=== PATIENT | female | born 1970 | race African-American/Black ===

== ENCOUNTER 2018-09-24 08:23 | Inpatient (IN) | payer OTHER ==
[2018-09-24 09:08] VITALS: BMI 20.2
--- NOTE | 2018-09-24 10:00 | HP ---
COWS - Scale Resting Pulse: 0= [place] 80 or Below Sweatin=Flushed/Facial Moisture Restless Observation: 3= Extraneous Movement Pupil Size: 1= Pupils >than Normal Bone or Joint Aches: 4=Acute Joint/Muscle Pain Runny Nose/ Eye Tearin= Runny Nose/Eyes GI Upset > 30mins: 1= Stomach Cramp Tremor Observation: 4= Gross Tremor/Twitching Yawning Observation: 1= 1-2x During Session Anxiety or Irritability: 2=Irritable/Anxious Goose Flesh Skin: 0=Smooth Skin COWS Score: 20 CIWA Score Nausea/Vomitin-Mild Nausea/No Vomiting Muscle Tremors: 3 Anxiety: 4-Mod. Anxious/Guarded Agitation: 4-Moderately Restless Paroxysmal Sweats: 2 Orientation: 2-Disoriented Date<2 days Tacttile Disturbances: 0-None Auditory Disturbances: 0-None Visual Disturbances: 0-None Headache: 3-Moderate CIWA-Ar Total Score: 19 - Admission Criteria [facility]ASAS Guidelines: Admission for Medically Managed Detox: Requires at least one of the followin. CIWA greater than 12 2. Seizures within the past 24 hours 3. Delirium tremens within the past 24 hours 4. Hallucinations within the past 24 hours 5. Acute intervention needed for co occurring medical disorder 6. Acute intervention needed for co occurring psychiatric disorder 7. Severe withdrawal that cannot be handled at a lower level of care (continued vomiting, continued diarrhea, abnormal vital signs) requiring intravenous medication and/or fluids 8. Admission ROS [facility] Chief Complaint: Heroin and alcohol withdrawal symptoms Allergies/Adverse Reactions: Allergies Allergy/AdvReac Type Severity Reaction Status Date / Time No Known Allergies Allergy Verified 09/24/18 08:58 History of Present Illness: 48 years old female with six years of heroin dependence and a long history of alcohol dependence is seeking admission to detox. Patient reports that she has been in detox 3 times, last at [facility] about 18 months ago. Patient reports that she is homeless. She reports that she has medical history of hypertension, migraine headaches, anemia and anxiety. She reports heroin overdose in 2018 and intermittent blackouts, last in May 2018. She requested for HIV and Hep. C tests. She reports suicide attempt in 2017 and denies suicidal ideation at this time. Exam Limitations: Clinical Condition - Ebola screening Have you traveled outside of the country in the last 21 days: No (N) Have you had contact with anyone from an Ebola affected area: No Do you have a fever: No - Review of Systems Constitutional: Chills, Malaise, Changes in sleep, Weakness EENT: reports: Sinus Pressure Respiratory: reports: No Symptoms reported Cardiac: reports: No Symptoms Reported GI: reports: Poor Appetite, Poor Fluid Intake, Abdominal cramping : reports: No Symptoms Reported Musculoskeletal: reports: Back Pain, Joint Pain, Muscle Pain Integumentary: reports: Dryness, Flushing Neuro: reports: Headache, Tremors Endocrine: reports: No Symptoms Reported Hematology: reports: No Symptoms Reported Psychiatric: reports: Anxious Other Systems: Reviewed and Negative Patient History - Patient Medical History Hx Anemia: Yes (Not on medication) Hx Asthma: No Hx Chronic Obstructive Pulmonary Disease (COPD): No Hx Cancer: No Hx Cardiac Disorders: No Hx Congestive Heart Failure: No Hx Hypertension: Yes (Not on medication) Hx Hypercholesterolemia: No Hx Pacemaker: No HX Cerebrovascular Accident: No Hx Seizures: No Hx Dementia: No Hx Diabetes: No Hx Gastrointestinal Disorders: No Hx Liver Disease: No Hx Genitourinary Disorders: No Hx Sexually Transmitted Disorders: Yes (Chlamydia) Hx Renal Disease (ESRD): No Hx Thyroid Disease: No Hx Human Immunodeficiency Virus (HIV): No (Negative 2017) Hx Hepatitis C: No Hx Suicide Attempt: Yes (Attempt in 2017. Denies suicidal ideation at this time) Hx Bipolar Disorder: No Hx Schizophrenia: No Other Medical History: Anxiety, mood swing - Not on medication - Patient Surgical History Past Surgical History: No - PPD History Previous Implant?: Yes Documented Results: Negative w/o proof Implanted On Prior [facility] Admission?: No PPD to be Administered?: Yes - Reproductive History Patient is a Female of Child Bearing Age (11 -55 yrs old): Yes Last Menstrual Period: 09/21/18 Patient : No - Smoking Cessation Smoking history: Current every day smoker Have you smoked in the past 12 months: Yes Aproximately how many cigarettes per day: 6 Hx Chewing Tobacco Use: No Initiated information on smoking cessation: Yes 'Breaking Loose' booklet given: 09/24/18 - Substance & Tx. History Hx Alcohol Use: Yes Hx Substance Use: Yes Substance Use Type: Alcohol, Cocaine, Heroin, Marijuana Hx Substance Use Treatment: Yes ([facility]) - Substances abused Alcohol Substance route: Oral Frequency: Daily Amount used: vodka- 1.5pts /beer-4 24oz cans Age of first use: 18 Date of last use: 09/24/18 Heroin Substance route: Inhalation Frequency: Daily Amount used: 3bags Age of first use: 42 Date of last use: 09/22/18 Crack Substance route: Smoking Frequency: Daily Amount used: $200 Age of first use: 18 Date of last use: 09/24/18 Non-Rx Methadone Substance route: Oral Frequency: 1-2 times per week Amount used: $20 Age of first use: 47 Date of last use: 09/24/18 Family Disease History - Family Disease History Family Disease History: Heart Disease: Father (Alcoholic cirrhosis - ), Mother (asthma), Respiratory: Mother, Other: Father Admission Physical Exam [facility] - Vital Signs Vital Signs: Vital Signs - 24 hr 09/24/18 08:58 Temperature 97.2 F L Pulse Rate 68 Respiratory 18 Rate Blood Pressure 165/102 H - Physical General Appearance: Yes: Moderate Distress, Tremorous, Irritable, Anxious HEENTM: Yes: Nasal Congestion Respiratory: Yes: Lungs Clear, Normal Breath Sounds, No Respiratory Distress Neck: Yes: Supple Breast: Yes: Breast Exam Deferred Cardiology: Yes: Regular Rhythm, Regular Rate Abdominal: Yes: Normal Bowel Sounds, Soft Genitourinary: Yes: Within Normal Limits Back: Yes: Normal Inspection Extremities: Yes: Normal Inspection Neurological: Yes: Within Normal Limits Integumentary: Yes: Warm Lymphatic: Yes: Within Normal Limits - Diagnostic (1) Cannabis dependence with withdrawal Current Visit: Yes Status: Acute (2) Opioid dependence with withdrawal Current Visit: Yes Status: Acute (3) Cocaine dependence with withdrawal Current Visit: Yes Status: Acute (4) HTN (hypertension) Current Visit: Yes Status: Chronic Qualifiers: Hypertension type: essential hypertension Qualified Code(s): I10 - Essential (primary) hypertension (5) Anemia Current Visit: Yes Status: Acute Qualifiers: Anemia type: iron deficiency (6) Migraine Current Visit: Yes Status: Chronic (7) Anxiety Current Visit: Yes Status: Acute (8) Nicotine dependence Current Visit: Yes Status: Chronic Qualifiers: Nicotine product type: cigarettes Substance use status: uncomplicated Qualified Code(s): F17.210 - Nicotine dependence, cigarettes, uncomplicated Cleared for Admission [facility] - Detox or Rehab [facility] Level of Care: Medically Managed Detox Regimen/Protocol: Methadone/Librium Breathalyzer - Breathalyzer Breathalyzer: 0 Urine Drug Screen - Test Device Lot number: [id number] Expiration date: 05/25/20 - Control Is test valid?: Yes - Results Drug screen NEGATIVE: No Urine drug screen results: THC-Marijuana, STU-Cocaine, MTD-Methadone Inpatient Rehab Admission - Rehab Decision to Admit Inpatient rehab admission?: No
[2018-09-24] MEDS ORDERED: chlordiazePOXIDE HCL 25 MG CAPSULE PO PRN (10:24)
[2018-09-24] MEDS ORDERED: BISMUTH SUBSALICYLATE 524 MG/30 ML UD PO PRN (10:24)
[2018-09-24] MEDS ORDERED: cloNIDine HCL 0.1 MG TABLET PO PRN (10:24)
[2018-09-24] MEDS ORDERED: MAG HYDROX/AL HYDROX/SIMETH 30 ML UNIT-DOSE CUP PO PRN (10:24)
[2018-09-24] MEDS ORDERED: MAGNESIUM CITRATE 300 ML BOTTLE PO PRN (10:24)
[2018-09-24] MEDS ORDERED: NICOTINE POLACRILEX 2 MG GUM BUC PRN (10:24)
[2018-09-24] MEDS ORDERED: ACETAMINOPHEN 325 MG TABLET (FP) PO PRN ×2 (10:24)
[2018-09-24] MEDS ORDERED: MELATONIN 5 MG TABLETS PO PRN (10:24)
[2018-09-24] MEDS ORDERED: MAGNESIUM HYDROX 2400MG/30ML ORAL SUSPENSION 30 ML CUP PO PRN (10:24)
[2018-09-24] MEDS ORDERED: MENTHOL/PHENOL 1 EACH UD MM PRN (10:24)
[2018-09-24] MEDS ORDERED: IBUPROFEN 400 MG TABLET (FP) PO PRN (10:24)
[2018-09-24] MEDS ORDERED: hydrOXYzine PAMOATE 25 MG CAPSULE (FP) PO PRN (10:24)
[2018-09-24] MEDS ORDERED: METHADONE HCL 10 MG TABLET (FOR DETOX USE ONLY) PO ONE (11:00)
[2018-09-24] MEDS: METHOCARBAMOL 500 MG TABLET PO PRN (12:22)
[2018-09-24] MEDS: chlordiazePOXIDE HCL 25 MG CAPSULE PO SCH ×3 (12:29→22:20)
[2018-09-24] MEDS ORDERED: METHADONE HCL 10 MG TABLET PO ONE (12:34)
--- NOTE | 2018-09-24 16:24 | PN ---
S Progress Note Note: ADMISSION EKG REVIEW: NSR NONSPECIFIC TWAVE ABNORMALITY, CONSIDER ISCHEMIA ABNORMAL ECG PT HAS NO PREVIOUS EKG PT DENIES CHEST PAIN, DIZZINESS,SWEATS, HEADACHE,NV/D. PLAN:REPEAT EKG IN A.M DUE TO NO BASELINE ECG. D/W PT TO INFORM STAFF OF ANY DISCOMFORT SO EVENING HOUSE PROVIDER CAN FOLLOW UP WITH FURTHER EVALUATION. ADDENDUM:PT HAS RX POSTED ON PHARMACY ONLINE FOR ISENTRESS AND TRUVADA. PT STATES SHE IS HX HIV NEGATIVE SO FAR AND WAS FOR UNPROTECTED SEX SHE ENGAGED IN BACK IN JUNE. PT HAS REQUESTED ON ADMISSION TODAY FOR HIV SCREENING. PT ALSO HAS RX POSTED FOR LITHIUM 150 MG PO #60 X 30 DAYS ON 08/02/18 ESCITALOPRAM TAB 10 MG PO #30 X 30 DAYS ON 08/02/18
[2018-09-24] MEDS ORDERED: COLLOIDAL OATMEAL 1 BAR EACH TP PRN (16:28)
[2018-09-24] MEDS: THIAMINE HCL 100 MG TABLET (FP) PO SCH (22:19)
[2018-09-24] MEDS: HYDROCORTISONE 1% TOPICAL CREAM 30 GM TUBE TP SCH (22:20)
--- NOTE | 2018-09-25 00:08 | EKG ---
Test Reason : Blood Pressure : / mmHG Vent. Rate : 066 BPM Atrial Rate : 066 BPM P-R Int : 152 ms QRS Dur : 084 ms QT Int : 424 ms P-R-T Axes : 077 069 078 degrees QTc Int : 444 ms NORMAL SINUS RHYTHM T WAVE ABNORMALITY, CONSIDER ANTERIOR ISCHEMIA ABNORMAL ECG NO PREVIOUS ECGS AVAILABLE Confirmed by MD Navdeep, Nasir ([id number]) on 09/25/2018 12:07:18 AM Referred By: HERNÁN BEATTY, Confirmed By:Nasir Sethi MD
[2018-09-25] MEDS: chlordiazePOXIDE HCL 25 MG CAPSULE PO SCH ×5 (05:19→22:49)
[2018-09-25] MEDS ORDERED: METHADONE HCL 10 MG TABLET (FOR DETOX USE ONLY) PO ONE (10:00)
[2018-09-25] MEDS: PRENATAL VITAMINS W/ FOLIC ACID TABLET (FP) PO SCH (10:21)
[2018-09-25] MEDS: HYDROCORTISONE 1% TOPICAL CREAM 30 GM TUBE TP SCH ×2 (10:21→22:49)
[2018-09-25] MEDS: NICOTINE 14 MG/24 HOURS TOPICAL PATCH TD SCH (10:23)
[2018-09-25 10:25] LABS: HEMATOCRIT 37.3 % (32.4-45.2); MCH 30.1 pg (25.7-33.7); MCHC 32.3 g/dl (32.0-36.0); MEAN CELL VOLUME 93.3 fl (80-96); MEAN PLT VOLUME 8.9 fl (7.5-11.1); PLATELET COUNT 296 K/MM3 (134-434); RDW 14.4 % (11.6-15.6); WHITE BLOOD COUNT 6.8 K/mm3 (4.0-10.0)
[2018-09-25 10:56] LABS: ALBUMIN 2.7 g/dl (3.4-5.0); BILIRUBIN,TOTAL 0.2 mg/dL (0.2-1); BLOOD UREA NITROGEN 15.4 mg/dL (7-18); CALCIUM 8.8 mg/dL (8.5-10.1); CREATININE 0.7 mg/dL (0.55-1.3); TOT PROT 5.8 g/dl (6.4-8.2)
[2018-09-25] MEDS ORDERED: PNEUMOC 13-VAL CONJ-DIP CRM/PF 0.5 ML DISP.SYRIN IM ONE (12:00)
[2018-09-25] MEDS ORDERED: PNEUMOCOCCAL 23 VACCINE 0.5 ML VIAL IM ONE (12:00)
[2018-09-25] MEDS ORDERED: diphenhydrAMINE HCL 25 MG CAPSULE (FP) PO PRN (12:54)
[2018-09-25] MEDS ORDERED: NALOXONE HCL 1 MG/ML ML IM ONE ×2 (14:25→15:00)
[2018-09-25] MEDS ORDERED: NALOXONE HCL 0.4 MG/ML VIAL IVPUSH PRN (14:30)
[2018-09-25] MEDS ORDERED: NALOXONE HCL 0.4 MG/ML VIAL IVPUSH ONE (14:30)
[2018-09-25] MEDS ORDERED: TRIMETHOBENZAMIDE HCL 200MG/2ML INJ IM ONE (14:35)
--- NOTE | 2018-09-25 15:27 | PN ---
[facility] CIWA - CIWA Score Nausea/Vomitin-No Nausea/No Vomiting Muscle Tremors: 2 Anxiety: 3 Agitation: 0-Normal Activity Paroxysmal Sweats: 2 Orientation: 0-Oriented Tacttile Disturbances: 3-Moderate Itch/Numb/Burn Auditory Disturbances: 0-None Visual Disturbances: 2-Mild Sensitivity Headache: 0-None Present CIWA-Ar Total Score: 12 S COWS - Scale Resting Pulse: 0= [place] 80 or Below Sweatin= Chills/Flushing Restless Observation: 0= Sits Still Pupil Size: 0= Normal to Room Light Bone or Joint Aches: 0= None Runny Nose/ Eye Tearin= None GI Upset > 30mins: 0= None Tremor Observation of Outstretched Hands: 2= Slight Tremor Visible Yawning Observation: 1= 1-2x During Session Anxiety or Irritability: 2=Irritable/Anxious Goose Flesh Skin: 3=Piloerection COWS Score: 9 S Progress Note (SOAP) Subjective: Fatigue, Interrupted Sleep, Itching, Anxious. Objective: PATIENT A & O X 3. IN NO ACUTE DISTRESS. 09/25/18 15:27 Vital Signs Temperature 97.3 F L 09/25/18 13:31 Pulse Rate 70 09/25/18 13:31 Respiratory Rate 18 09/25/18 13:31 Blood Pressure 133/96 09/25/18 13:31 O2 Sat by Pulse Oximetry (%) Laboratory Tests 09/24/18 09/25/18 09/25/18 09:45 07:00 07:00 WBC 6.8 RBC 4.00 Hgb 12.0 Hct 37.3 MCV 93.3 MCH 30.1 MCHC 32.3 RDW 14.4 Plt Count 296 MPV 8.9 Sodium 139 Potassium 4.0 Chloride 108 H Carbon Dioxide 27 Anion Gap 4 L BUN 15.4 Creatinine 0.7 Est GFR (CKD-EPI)AfAm 120.43 Est GFR (CKD-EPI)NonAf 103.90 Random Glucose 84 Calcium 8.8 Total Bilirubin 0.2 AST 20 ALT 16 Alkaline Phosphatase 63 Total Protein 5.8 L Albumin 2.7 L POC Urine HCG, Qual Negative RPR Titer HIV 1&2 Antibody Screen HIV P24 Antigen 09/25/18 09/25/18 07:00 07:00 WBC RBC Hgb Hct MCV MCH MCHC RDW Plt Count MPV Sodium Potassium Chloride Carbon Dioxide Anion Gap BUN Creatinine Est GFR (CKD-EPI)AfAm Est GFR (CKD-EPI)NonAf Random Glucose Calcium Total Bilirubin AST ALT Alkaline Phosphatase Total Protein Albumin POC Urine HCG, Qual RPR Titer Nonreactive HIV 1&2 Antibody Screen Negative HIV P24 Antigen Negative LABS NOTED. Assessment: 09/25/18 15:28 WITHDRAWAL SYMPTOMS. Plan: CONTINUE DETOX.
--- NOTE | 2018-09-25 15:38 | PN ---
[facility] Progress Note Note: PATIENT RANG CALL GARCIA IN HER BATHROOM BECAUSE SHE FELT VERY WEAK. DETOX UNIT RN AND STAFF WENT TO ASSIST PATIENT. PATIENT FOUND BY STAFF TO MINIMALLY RESPONSIVE AND VERY LETHARGIC SITTING ON TOILET IN HER BATHROOM. RAPID RESPONSE CALLED. PATIENT ASSISTED TO HER BED. PATIENT MINIMALLY RESPONSIVE, BUT WHEN ASKED ABLE TO SAY HER OWN NAME. PATIENT APPEARED VERY GUARDED AND LEGS CONTRACTED WHILE LYING IN BED. PATIENT APPEARS TREMOROUS, EYES TEARING. AFTER SEVERAL MINUTES IN BED, PATIENT VOMITED X 1, VERY PROFUSE AMOUNT, YELLOW- ORANGE COLOR. VS: BP: 190/121; P: 86; RR: 20; BGM: 101. 02 64% INITIALLY ON ROOM AIR; HOWEVER, AFTER SEVERAL MINUTES ON 0XYGEN 3L VIA NASAL CANULA, 02 INCREASED TO 100%. NARCAN, IM X 2 CONSECUTIVE DOSES (4 MG EACH) ADMINISTERED, FOLLOWED BY NARCAN, 0.4 MG IM X DOSE ADMINISTERED. REPORT GIVEN TO DR. CARTER AT [facility]. PATIENT TO BE TAKEN VIA AMBULANCE TO [facility] FOR FURTHER MEDICAL EVALUATION. Yodit GAMBOA NP
--- NOTE | 2018-09-25 16:46 | EKG ---
Test Reason : Blood Pressure : / mmHG Vent. Rate : 065 BPM Atrial Rate : 065 BPM P-R Int : 150 ms QRS Dur : 080 ms QT Int : 414 ms P-R-T Axes : 074 067 070 degrees QTc Int : 430 ms NORMAL SINUS RHYTHM POSSIBLE LEFT ATRIAL ENLARGEMENT T WAVE ABNORMALITY, CONSIDER ANTEROLATERAL ISCHEMIA ABNORMAL ECG WHEN COMPARED WITH ECG OF 24-SEP-2018 13:16, NO SIGNIFICANT CHANGE WAS FOUND Confirmed by DARIO FRANCO, ADILSON ([id number]) on 09/25/2018 4:46:33 PM Referred By: TAYLOR GAMBOA Confirmed By:ADILSON BISHOP MD
--- NOTE | 2018-09-25 18:40 | CONSULT ---
[facility] Psychiatric Consult - Data Date of interview: 09/25/18 Admission source: [facility] Identifying data: Not found for psychiatric examination. As per nurses, the patient was transferred to the medical unit at [facility].
[2018-09-25] MEDS: THIAMINE HCL 100 MG TABLET (FP) PO SCH (22:49)
--- NOTE | 2018-09-25 23:24 | PN ---
[facility] Progress Note Note: Patient was found on floor earlier today, given Narcan, and then sent to [facility] ED for evaluation. Patient returns from [facility] ED. ED course reviewed, where patient received Labs, CT head, CXR, and ECG. No acute pathology was identified and patient returns to [facility] for continuation of detox. Patient is alert. Vital Signs 09/25/18 22:52 Temperature 97.4 F L Pulse Rate 65 Respiratory 18 Rate Blood Pressure 145/104 H Plan: Post Fall Protocol Continue detox.
[2018-09-26] MEDS: chlordiazePOXIDE HCL 10 MG CAPSULE PO SCH ×4 (05:39→22:16)
[2018-09-26] MEDS ORDERED: chlordiazePOXIDE HCL 10 MG CAPSULE PO PRN (06:00)
[2018-09-26] MEDS ORDERED: METHADONE HCL 10 MG TABLET (FOR DETOX USE ONLY) PO ONE (10:00)
[2018-09-26] MEDS: HYDROCORTISONE 1% TOPICAL CREAM 30 GM TUBE TP SCH ×2 (11:14→22:16)
[2018-09-26] MEDS: PRENATAL VITAMINS W/ FOLIC ACID TABLET (FP) PO SCH (11:14)
[2018-09-26] MEDS: NICOTINE 14 MG/24 HOURS TOPICAL PATCH TD SCH (11:14)
[2018-09-26] MEDS: METHOCARBAMOL 500 MG TABLET PO PRN (12:10)
--- NOTE | 2018-09-26 12:42 | PN ---
S CIWA - CIWA Score Nausea/Vomitin-Mild Nausea/No Vomiting Muscle Tremors: 2 Anxiety: 1-Mildly Anxious Agitation: 1-Slight > Activity Paroxysmal Sweats: No Perspiration Orientation: 0-Oriented Tacttile Disturbances: 0-None Auditory Disturbances: 0-None Visual Disturbances: 0-None Headache: 0-None Present CIWA-Ar Total Score: 5 BHS COWS - Scale Resting Pulse: 1= [place] 81-100 Sweatin= No chills or Flushing Restless Observation: 1= Difficult to Sit Still Pupil Size: 0= Normal to Room Light Bone or Joint Aches: 1= Mild Discomfort Runny Nose/ Eye Tearin= Nasal Congestion GI Upset > 30mins: 1= Stomach Cramp Tremor Observation of Outstretched Hands: 0= None Yawning Observation: 0= None Anxiety or Irritability: 1=Feels Anxious/Irritable Goose Flesh Skin: 0=Smooth Skin COWS Score: 6 S Progress Note (SOAP) Subjective: pt states she uses many substances, here for alcohol and opioid detoxes O: Vital Signs - 24 hr 09/25/18 09/25/18 09/26/18 13:31 22:52 00:30 Temperature 97.3 F L 97.4 F L Pulse Rate 70 65 Respiratory 18 18 18 Rate Blood Pressure 133/96 145/104 H 09/26/18 09/26/18 09/26/18 03:30 06:10 09:06 Temperature 97.4 F L 96.4 F L Pulse Rate 60 65 Respiratory 18 16 18 Rate Blood Pressure 114/80 120/85 Laboratory Tests 09/24/18 09/25/18 09/25/18 09:45 07:00 07:00 WBC 6.8 RBC 4.00 Hgb 12.0 Hct 37.3 MCV 93.3 MCH 30.1 MCHC 32.3 RDW 14.4 Plt Count 296 MPV 8.9 Sodium 139 Potassium 4.0 Chloride 108 H Carbon Dioxide 27 Anion Gap 4 L BUN 15.4 Creatinine 0.7 Est GFR (CKD-EPI)AfAm 120.43 Est GFR (CKD-EPI)NonAf 103.90 POC Glucometer Random Glucose 84 Calcium 8.8 Total Bilirubin 0.2 AST 20 ALT 16 Alkaline Phosphatase 63 Total Protein 5.8 L Albumin 2.7 L POC Urine HCG, Qual Negative RPR Titer Hep C Ab Diagnostic HIV 1&2 Antibody Screen HIV P24 Antigen 09/25/18 09/25/18 09/25/18 07:00 07:00 07:00 WBC RBC Hgb Hct MCV MCH MCHC RDW Plt Count MPV Sodium Potassium Chloride Carbon Dioxide Anion Gap BUN Creatinine Est GFR (CKD-EPI)AfAm Est GFR (CKD-EPI)NonAf POC Glucometer Random Glucose Calcium Total Bilirubin AST ALT Alkaline Phosphatase Total Protein Albumin POC Urine HCG, Qual RPR Titer Nonreactive Hep C Ab Diagnostic <0.1 HIV 1&2 Antibody Screen Negative HIV P24 Antigen Negative 09/25/18 14:26 WBC RBC Hgb Hct MCV MCH MCHC RDW Plt Count MPV Sodium Potassium Chloride Carbon Dioxide Anion Gap BUN Creatinine Est GFR (CKD-EPI)AfAm Est GFR (CKD-EPI)NonAf POC Glucometer 101 Random Glucose Calcium Total Bilirubin AST ALT Alkaline Phosphatase Total Protein Albumin POC Urine HCG, Qual RPR Titer Hep C Ab Diagnostic HIV 1&2 Antibody Screen HIV P24 Antigen a/p: continue alcohol/heroin detox protocols-pt stable
--- NOTE | 2018-09-26 13:51 | PN ---
[facility] Progress Note Note: PT is currently on fall protocol- pt did not actually fall. Refer to yesterday' s note by Uday Castro. Will d/c fall protocol and order AT Risk to fall protocol.
[2018-09-26] MEDS: THIAMINE HCL 100 MG TABLET (FP) PO SCH (22:16)
[2018-09-27] MEDS ORDERED: chlordiazePOXIDE HCL 10 MG CAPSULE PO SCH (06:00)
[2018-09-27 09:17] VITALS: BP 106/67; PULSE 63; TEMP 98.2
[2018-09-27] MEDS ORDERED: METHADONE HCL 10 MG TABLET (FOR DETOX USE ONLY) PO ONE (10:00)
[2018-09-27] MEDS: HYDROCORTISONE 1% TOPICAL CREAM 30 GM TUBE TP SCH (10:21)
[2018-09-27] MEDS: NICOTINE 14 MG/24 HOURS TOPICAL PATCH TD SCH (10:22)
[2018-09-27] MEDS: PRENATAL VITAMINS W/ FOLIC ACID TABLET (FP) PO SCH (10:22)
--- NOTE | 2018-09-27 19:53 | DS ---
[facility] Detox Discharge Summary Admission Date: 09/24/18 Discharge Date: 09/27/18 - History Present History: Cannabis Dependence, Cocaine Dependence, Opioid Dependence Additional Comments: PATIENT DENIES CURRENT WITHDRAWAL / DETOX SYMPTOMS AND REPORTS THAT HE FEELS WELL OVERALL AT TIME OF DISCHARGE FROM DETOX UNIT. PATIENT GOING TP [facility] ([place], [place]) FOR AFTERCARE. CXR DONE OF PATIENT WHILE SHE WAS SEEN IN [facility] ER TWO DAYS AGO NEGATIVE FOR ACUTE DISEASE PROCESS. PATIENT WAS DISCHARGED FROM DETOX UNIT IN STABLE MEDICAL CONDITION. Pertinent Past History: HTN, Migraine Headaches, Anxiety, History Of Anemia, History Of Blackouts, Nicotine Dependence. - Physical Exam Results Vital Signs: Vital Signs Temperature 98.2 F 09/27/18 09:15 Pulse Rate 63 09/27/18 09:15 Respiratory Rate 18 09/27/18 09:15 Blood Pressure 106/67 09/27/18 09:15 O2 Sat by Pulse Oximetry (%) Pertinent Admission Physical Exam Findings: WITHDRAWAL SYMPTOMS. Laboratory Tests 09/24/18 09/25/18 09/25/18 09:45 07:00 07:00 WBC 6.8 RBC 4.00 Hgb 12.0 Hct 37.3 MCV 93.3 MCH 30.1 MCHC 32.3 RDW 14.4 Plt Count 296 MPV 8.9 Sodium Potassium Chloride Carbon Dioxide Anion Gap BUN Creatinine Est GFR (CKD-EPI)AfAm Est GFR (CKD-EPI)NonAf POC Glucometer Random Glucose Calcium Total Bilirubin AST ALT Alkaline Phosphatase Total Protein Albumin POC Urine HCG, Qual Negative RPR Titer Hep C Ab Diagnostic HIV 1&2 Antibody Screen HIV P24 Antigen TB (QFT) Incubation TB Test (QFT) Nil 0.10 TB Test (QFT) Mitogen >10.00 TB Test (QFT) Antigen 0.64 TB Test (QFT) Positive H TB Positive Criteria 09/25/18 09/25/18 09/25/18 07:00 07:00 07:00 WBC RBC Hgb Hct MCV MCH MCHC RDW Plt Count MPV Sodium 139 Potassium 4.0 Chloride 108 H Carbon Dioxide 27 Anion Gap 4 L BUN 15.4 Creatinine 0.7 Est GFR (CKD-EPI)AfAm 120.43 Est GFR (CKD-EPI)NonAf 103.90 POC Glucometer Random Glucose 84 Calcium 8.8 Total Bilirubin 0.2 AST 20 ALT 16 Alkaline Phosphatase 63 Total Protein 5.8 L Albumin 2.7 L POC Urine HCG, Qual RPR Titer Nonreactive Hep C Ab Diagnostic HIV 1&2 Antibody Screen Negative HIV P24 Antigen Negative TB (QFT) Incubation TB Test (QFT) Nil TB Test (QFT) Mitogen TB Test (QFT) Antigen TB Test (QFT) TB Positive Criteria 09/25/18 09/25/18 07:00 14:26 WBC RBC Hgb Hct MCV MCH MCHC RDW Plt Count MPV Sodium Potassium Chloride Carbon Dioxide Anion Gap BUN Creatinine Est GFR (CKD-EPI)AfAm Est GFR (CKD-EPI)NonAf POC Glucometer 101 Random Glucose Calcium Total Bilirubin AST ALT Alkaline Phosphatase Total Protein Albumin POC Urine HCG, Qual RPR Titer Hep C Ab Diagnostic <0.1 HIV 1&2 Antibody Screen HIV P24 Antigen TB (QFT) Incubation TB Test (QFT) Nil TB Test (QFT) Mitogen TB Test (QFT) Antigen TB Test (QFT) TB Positive Criteria LABS NOTED. - Treatment Hospital Course: Detox Protocol Followed, Detoxed Safely, Responded well, Discharged Condition Good, Rehab Referral Accepted Patient has Accepted a Rehab Referral to: [facility] ([place], [place]). - Medication Discharge Medications: Ambulatory Orders NK [No Known Home Medication] 09/24/18 - Diagnosis (1) Anemia Status: Acute Qualifiers: Anemia type: iron deficiency Iron deficiency anemia type: unspecified iron deficiency Qualified Code(s): D50.9 - Iron deficiency anemia, unspecified (2) Anxiety Status: Acute (3) Cannabis dependence with withdrawal Status: Acute (4) Cocaine dependence with withdrawal Status: Acute (5) Opioid dependence with withdrawal Status: Acute (6) HTN (hypertension) Status: Chronic Qualifiers: Hypertension type: essential hypertension Qualified Code(s): I10 - Essential (primary) hypertension (7) Migraine Status: Chronic Qualifiers: Migraine type: unspecified Status migrainosus presence: without status migrainosus Intractability: not intractable Qualified Code(s): G43.909 - Migraine, unspecified, not intractable, without status migrainosus (8) Nicotine dependence Status: Chronic Qualifiers: Nicotine product type: cigarettes Substance use status: uncomplicated Qualified Code(s): F17.210 - Nicotine dependence, cigarettes, uncomplicated - AMA Did Patient Leave Against Medical Advice: No
[2018-09-28] MEDS ORDERED: METHADONE HCL 5 MG TABLET (FOR DETOX USE ONLY) PO ONE (10:00)
== END 2018-09-27 13:29 | disposition home or self-care (01) | DRG 773 ==
LOC: YASAS 08:23 → Y3N 10:36
PROVIDERS: ADMIT Surgery; ATTEND Surgery
PROC: HZ2ZZZZ Detoxification Services for Substance Abuse Treatment (ICD-10-PCS; principal; 2018-09-24)
DX: F11.23 Opioid dependence with withdrawal (principal); F10.230 Alcohol dependence with withdrawal, uncomplicated; F14.23 Cocaine dependence with withdrawal; F12.20 Cannabis dependence, uncomplicated; F17.210 Nicotine dependence, cigarettes, uncomplicated; F41.9 Anxiety disorder, unspecified; F39 Unspecified mood [affective] disorder; I10 Essential (primary) hypertension; D50.9 Iron deficiency anemia, unspecified; G43.909 Migraine, unspecified, not intractable, without status migrainosus; R94.31 Abnormal electrocardiogram [ECG] [EKG]; R53.83 Other fatigue; Z86.19 Personal history of other infectious and parasitic diseases; Z91.5 Personal history of self-harm
CPT/HCPCS: 36415; 80053; 81025; 82962; 85027; 86480; 86593; 86803; 87389; 93005; 93010; J0735

== ENCOUNTER 2018-09-25 15:17 | Emergency (ER) | payer OTHER ==
[2018-09-25 15:38] VITALS: TEMP 98.3; BMI 21.9
--- NOTE | 2018-09-25 16:05 | PDOC ---
History of Present Illness - General Chief Complaint: Pain, Acute Stated Complaint: LOWER ABD PAIN Time Seen by Provider: 09/25/18 15:45 - History of Present Illness Initial Comments: The pt is a 48F w/ a history of heroin and EtOH abuse who presents for evaluation from [facility] s/p unwitnessed fall. States she got up from bed, fell to the floor (denies hitting her head or LOC). Fell asleep there for approximately 20 minutes. Went to the bathroom where she was found down by [facility] staff. She received Nacan IH x2 and IM x1 prior to EMS arrival. In the ED the pt denies any complaints other than pain the site of the IM injection. She denies syncope, pain, recent illness, chest pain, trouble breathing, N/V 09/25/18 16:04 Past History - Past Medical History Allergies/Adverse Reactions: Allergies Allergy/AdvReac Type Severity Reaction Status Date / Time No Known Allergies Allergy Verified 09/24/18 08:58 Home Medications: Ambulatory Orders NK [No Known Home Medication] 09/24/18 Anemia: Yes (Not on medication) Asthma: No Cancer: No Cardiac Disorders: No CVA: No COPD: No CHF: No Dementia: No Diabetes: No GI Disorders: No Disorders: No HTN: Yes (Not on medication) Hypercholesterolemia: No Kidney Stones: No Liver Disease: No Seizures: No Thyroid Disease: No - Surgical History Abdominal Surgery: No Appendectomy: No Cardiac Surgery: No Cholecystectomy: No Lung Surgery: No Neurologic Surgery: No Orthopedic Surgery: No - Reproductive History PID: No - Suicide/Smoking/Psychosocial Hx Smoking History: Current every day smoker Have you smoked in the past 12 months: Yes Number of Cigarettes Smoked Daily: 4 Information on smoking cessation initiated: No 'Breaking Loose' booklet given: 09/24/18 Hx Alcohol Use: Yes Drug/Substance Use Hx: Yes Substance Use Type: Alcohol, Cocaine, Heroin, Marijuana Hx Substance Use Treatment: Yes ([facility]) Review of Systems - Review of Systems Able to Perform ROS?: Yes Comments:: GENERAL/CONSTITUTIONAL: No fever or chills. No weakness HEAD, EYES, EARS, NOSE AND THROAT: No change in vision. No ear pain or discharge. No sore throat CARDIOVASCULAR: No chest pain or shortness of breath RESPIRATORY: Denies cough, hemoptysis GASTROINTESTINAL: No nausea, vomiting, diarrhea or constipation GENITOURINARY: No dysuria, frequency, or change in urination MUSCULOSKELETAL: + hip pain at site of IM injection SKIN: No rash NEUROLOGIC: No headache, vertigo, loss of consciousness, or change in strength/ sensation ENDOCRINE: No increased thirst. No abnormal weight change HEMATOLOGIC/LYMPHATIC: No anemia, easy bleeding, or history of blood clots ALLERGIC/IMMUNOLOGIC: No hives or skin allergy 09/25/18 16:02 Is the patient limited Georgian proficient: No *Physical Exam - Vital Signs Last Vital Signs Temp Pulse Resp BP Pulse Ox 98.3 F 72 18 154/90 99 09/25/18 15:30 09/25/18 15:30 09/25/18 15:30 09/25/18 15:30 09/25/18 15:30 - Physical Exam Comments: GENERAL: Awake, alert, and oriented to person/place/time, in no acute distress HEAD: No signs of trauma, normocephalic, atraumatic EYES: PERRLA, EOMI, sclera anicteric, conjunctiva clear ENT: Hearing grossly normal, nares patent, oropharynx clear without exudates. Moist mucosa LUNGS: No distress, speaks in full sentences, clear to auscultation bilaterally HEART: Regular rate and rhythm, normal S1 and S2, no murmurs appreciated, peripheral pulses normal and equal bilaterally ABDOMEN: Soft, nontender, normoactive bowel sounds. No guarding, no rebound EXTREMITIES: Normal inspection, Normal range of motion, no edema. No clubbing or cyanosis NEUROLOGICAL: Cranial nerves II through XII grossly intact. Normal speech, no focal sensorimotor deficits SKIN: Warm, Dry 09/25/18 16:03 ED Treatment Course - LABORATORY CBC & Chemistry Diagram: 09/25/18 16:30 09/25/18 16:30 - RADIOLOGY Radiology Studies Ordered: Category Date Time Status HEAD CT WITHOUT CONTRAST [CT] Stat CT Scan 09/25/18 16:01 Ordered CHEST X-RAY PORTABLE* [RAD] Stat Radiology 09/25/18 16:01 Ordered Medical Decision Making - Medical Decision Making The pt is a 48F w/ a history of heroin and EtOH abuse who presents for evaluation after being found down at [facility] s/p Narcan IH x2 and IM x1 just PROCESSING MGR ED Course Labs CT head CXR ECG 09/25/18 16:03 WBC unremarkable No anemia Lytes wnl Trop I neg No CRISTIN LFTs unremarkable CXR w/o acute pathology 09/25/18 18:10 Pt feels improved after observation Pt tolerating PO in ED Ambulating with stable gait and w/o slurred speech Dispo: [facility] *DC/Admit/Observation/Transfer Diagnosis at time of Disposition: Lethargy - Discharge Dispostion Disposition: HOME Condition at time of disposition: Improved Decision to Admit order: No - Referrals - Patient Instructions Printed Discharge Instructions: DI for Opioid Addiction Additional Instructions: You were seen in the Emergency Department for lethargy. Your labs were unremarkable. Review the handout provided at discharge. Follow up with your primary care provider. Return to the Emergency Department if you develop fevers/ chills, chest pain, trouble breathing, increased weakness/lethargy, worsening symptoms, or any new/concerning symptoms. - Post Discharge Activity
[2018-09-25 16:46] LABS: BASO % 0.7 % (0-2.0); EOS % 2.7 % (0-4.5); HEMATOCRIT 36.6 % (32.4-45.2); HEMOGLOBIN 11.9 GM/dL (10.7-15.3); MCHC 32.4 g/dl (32.0-36.0); MEAN CELL VOLUME 92.4 fl (80-96); MONO % 5.8 % (3.8-10.2); NEUT % 76.8 % (42.8-82.8); PLATELET COUNT 295 K/MM3 (134-434); RBC 3.96 M/mm3 (3.60-5.2); RDW 14.2 % (11.6-15.6); WHITE BLOOD COUNT 11.7 K/mm3 (4.0-10.0)
--- NOTE | 2018-09-25 16:58 | PDOC ---
Documentation entered by Gaby Alex SCRIBE, acting as scribe for Etelvina Alfonso MD. Etelvina Alfonso MD: This documentation has been prepared by the Isai hagen Adrianna, SCRIBE, under my direction and personally reviewed by me in its entirety. I confirm that the documentation accurately reflects all work, treatment, procedures, and medical decision making performed by me. Attending Attestation - Resident Resident Name: Mike Hilliard - ED Attending Attestation I have performed the following: I have examined & evaluated the patient, The case was reviewed & discussed with the resident, I agree w/resident's findings & plan, Exceptions are as noted - HPI HPI: The patient is a 48 year old female, with a significant PMH of heroin and EtOH abuse (currently seeking detox), HTN, migraines, anemia, previous suicide attempt (2017),and anxiety, who presents to the ED from [facility] s/p unwitnessed fall. Patient notes she was in the bathroom, when she states her legs felt weak and she fell to the floor. She denies hitting her head or losing consciousness. Patient states she fell asleep on the floor for approximately 20 minutes following the fall. Patient was unresponsive to stimuli upon EMS arrival , and was given 2 narcan prior to ED visit. Allergies: NKA, NKDA Surgical History: None reported Social History: Heroin and EtOH abuse (currently seeking detox at [facility]) - Physicial Exam PE: GENERAL: Asleep, awakens to voice, in no acute distress HEAD: No signs of trauma EYES: PERRLA, EOMI, sclera anicteric, conjunctiva clear ENT: Auricles normal inspection, hearing grossly normal, nares patent, oropharynx clear without exudates. Moist mucosa NECK: Normal ROM, supple, no lymphadenopathy, JVD, or masses LUNGS: Breath sounds equal, clear to auscultation bilaterally. No wheezes, and no crackles HEART: Regular rate and rhythm, normal S1 and S2, no murmurs, rubs or gallops ABDOMEN: Soft, nontender, normoactive bowel sounds. No guarding, no rebound. No masses EXTREMITIES: Normal range of motion, no edema. No clubbing or cyanosis. No cords, erythema, or tenderness NEUROLOGICAL: Cranial nerves II through XII grossly intact. Normal speech. Motor and sensation intact SKIN: Warm, Dry, normal turgor, no rashes or lesions noted. - Medical Decision Making Pt arrives via EMS from [facility] after found on floor, unwitnessed fall. She is somnolent in ED, however, on initial eval in the ED she was awake and alert. Symptoms are likely related to opiate use/methadone, as she improved with narcan.
[2018-09-25 17:18] LABS: ALK PHOS 63 U/L (45-117); ANION GAP 4 MMOL/L (8-16); BILIRUBIN,TOTAL < 0.1 mg/dL (0.2-1); BLOOD UREA NITROGEN 12.8 mg/dL (7-18); CALCIUM 8.9 mg/dL (8.5-10.1); CHLORIDE 105 mmol/L (98-107); CO2 31 mmol/L (21-32); CREATININE 0.8 mg/dL (0.55-1.3); GLUCOSE,RANDOM 80 mg/dL (74-106); POTASSIUM 3.8 mmol/L (3.5-5.1); SGOT/AST 29 U/L (15-37); SGPT/ALT 19 U/L (13-61); SODIUM 140 mmol/L (136-145); TOT PROT 6.4 g/dl (6.4-8.2)
[2018-09-25 22:29] VITALS: BP 156/82; PULSE 86
--- NOTE | 2018-09-26 14:49 | EKG ---
Test Reason : Blood Pressure : / mmHG Vent. Rate : 066 BPM Atrial Rate : 066 BPM P-R Int : 156 ms QRS Dur : 078 ms QT Int : 412 ms P-R-T Axes : 072 054 066 degrees QTc Int : 431 ms NORMAL SINUS RHYTHM POSSIBLE LEFT ATRIAL ENLARGEMENT BORDERLINE ECG WHEN COMPARED WITH ECG OF 25-SEP-2018 08:11, T WAVE INVERSION NO LONGER EVIDENT IN ANTEROLATERAL LEADS Confirmed by MD SWAPNA, HAVEN ([id number]) on 09/26/2018 2:49:19 PM Referred By: Confirmed By:HAVEN BARCENAS MD
== END 2018-09-25 22:29 | disposition home or self-care (01) ==
LOC: JER 15:17
DX: R53.83 Other fatigue (principal); W18.39XA Other fall on same level, initial encounter; Y93.89 Activity, other specified; Y92.231 Patient bathroom in hospital as the place of occurrence of the external cause; Y99.8 Other external cause status; F10.10 Alcohol abuse, uncomplicated; F11.10 Opioid abuse, uncomplicated; F14.10 Cocaine abuse, uncomplicated; F12.10 Cannabis abuse, uncomplicated
CPT/HCPCS: 36415; 70450-TC; 71045-TC-FY; 80053; 84484; 85025; 93005; 93010; 99281-25

== ENCOUNTER 2019-03-03 12:12 | Inpatient (IN) | payer OTHER ==
[2019-03-03 14:46] VITALS: BMI 19.1
--- NOTE | 2019-03-03 15:40 | HP ---
COWS - Scale Resting Pulse: 1= MS 81-100 Sweatin= Chills/Flushing Restless Observation: 1= Difficult to Sit Still Pupil Size: 1= Pupils >than Normal Bone or Joint Aches: 2= Severe Diffuse Aches Runny Nose/ Eye Tearin= Runny Nose/Eyes GI Upset > 30mins: 2= Nausea/Diarrhea Tremor Observation: 2= Slight Tremor Visible Yawning Observation: 1= 1-2x During Session Anxiety or Irritability: 2=Irritable/Anxious Goose Flesh Skin: 0=Smooth Skin COWS Score: 15 CIWA Score Nausea/Vomitin Muscle Tremors: 2 Anxiety: 3 Agitation: 3 Paroxysmal Sweats: 1-Minimal Palms Moist Orientation: 0-Oriented Tacttile Disturbances: 1-Very Mild Itch/Numbness Auditory Disturbances: 0-None Visual Disturbances: 0-None Headache: 2-Mild CIWA-Ar Total Score: 14 - Admission Criteria OASAS Guidelines: Admission for Medically Managed Detox: Requires at least one of the followin. CIWA greater than 12 2. Seizures within the past 24 hours 3. Delirium tremens within the past 24 hours 4. Hallucinations within the past 24 hours 5. Acute intervention needed for co occurring medical disorder 6. Acute intervention needed for co occurring psychiatric disorder 7. Severe withdrawal that cannot be handled at a lower level of care (continued vomiting, continued diarrhea, abnormal vital signs) requiring intravenous medication and/or fluids 8. Admitting History and Physical - Admission Chief Complaint: i need help to stop using heroin,alcojol,also cocane and amrijuana abused History Source: Patient Limitations to Obtaining History: No Limitations - Past Medical History ...LMP: 02/24/19 ...: No - Past Surgical History Past Surgical History: Yes: , Tubal Ligation Additional Past Surgical History: biopsy of cervix in 1989 - Smoking History Smoking history: Current every day smoker Have you smoked in the past 12 months: Yes Aproximately how many cigarettes per day: 4 - Alcohol/Substance Use Hx Alcohol Use: Yes Admission ROS S - [facility] Chief Complaint: i nee help to stop using heroin,alcohol,cocaine,and marijuana Allergies/Adverse Reactions: Allergies Allergy/AdvReac Type Severity Reaction Status Date / Time No Known Allergies Allergy Verified 03/03/19 14:36 History of Present Illness: this 48 years old with heroin,alcohol dependence,cocaine and marijuana abused, seeking detox,withdrawal symptom had previous admission in this facility last 09/24/18 to 09/27/18 no significant period of sobriety weight loss history of depression,no medication plan for rehab after detox Exam Limitations: No Limitations - Ebola screening Have you traveled outside of the country in the last 21 days: No Have you had contact with anyone from an Ebola affected area: No - Review of Systems Constitutional: Chills, Loss of Appetite, Night Sweats, Changes in sleep, Weakness, Weight Stable, Unintentional Wgt. Loss EENT: reports: Tearing, Nose Congestion Respiratory: reports: No Symptoms reported Cardiac: reports: No Symptoms Reported GI: reports: Diarrhea, Nausea, Vomiting, Abdominal cramping Musculoskeletal: reports: Back Pain, Joint Pain, Muscle Pain, Joint Stiffness Integumentary: reports: Dryness Neuro: reports: Headache, Tremors Endocrine: reports: No Symptoms Reported Hematology: reports: No Symptoms Reported Psychiatric: reports: No Sypmtoms Reported, Judgement Intact, Mood/Affect Appropiate, Orientated x3 Patient History - Patient Medical History Hx Anemia: Yes (Not on medication) Hx Asthma: No Hx Chronic Obstructive Pulmonary Disease (COPD): No Hx Cancer: No Hx Cardiac Disorders: No Hx Congestive Heart Failure: No Hx Hypertension: Yes (Not on medication) Hx Hypercholesterolemia: No Hx Pacemaker: No HX Cerebrovascular Accident: No Hx Seizures: No Hx Dementia: No Hx Diabetes: No Hx Gastrointestinal Disorders: No Hx Liver Disease: No Hx Genitourinary Disorders: No Hx Sexually Transmitted Disorders: Yes (Chlamydia) Hx Renal Disease (ESRD): No Hx Thyroid Disease: No Hx Human Immunodeficiency Virus (HIV): No (Negative 2018) Hx Hepatitis C: No Hx Depression: Yes Hx Suicide Attempt: Yes (Attempt in 2017. Denies suicidal ideation at this time) Hx Bipolar Disorder: No Hx Schizophrenia: No Other Medical History: no suicidal,no homicidal - Patient Surgical History Past Surgical History: No Hx Neurologic Surgery: No Hx Cataract Extraction: No Hx Cardiac Surgery: No Hx Lung Surgery: No Hx Breast Surgery: No Hx Breast Biopsy: No Hx Abdominal Surgery: No Hx Appendectomy: No Hx Cholecystectomy: No Hx Genitourinary Surgery: No Hx Section: Yes (x1) Hx Orthopedic Surgery: No Other Surgical History: cervial biopsy in 1995 Anesthesia Reaction: No - PPD History Previous Implant?: Yes Documented Results: Positive w/proof Implanted On Prior R Admission?: No PPD to be Administered?: No - Reproductive History Last Menstrual Period: 09/21/18 Patient : No - Smoking Cessation Smoking history: Current every day smoker Have you smoked in the past 12 months: Yes Aproximately how many cigarettes per day: 10 Hx Chewing Tobacco Use: No Initiated information on smoking cessation: Yes 'Breaking Loose' booklet given: 03/03/19 - Substance & Tx. History Hx Alcohol Use: Yes Hx Substance Use: Yes Substance Use Type: Alcohol, Cocaine, Heroin, Opiates Hx Substance Use Treatment: Yes (09/24/18 to 09/27/18) - Substances abused Alcohol Substance route: Oral Frequency: Daily Amount used: 1/2 -1 pint of vodka Age of first use: 18 Date of last use: 03/03/19 Heroin Substance route: Inhalation Frequency: Daily Amount used: 2 bags Age of first use: 42 Date of last use: 03/03/19 Crack Substance route: Smoking Frequency: Daily Amount used: $150-200 Age of first use: 18 Date of last use: 03/03/19 Non-Rx Methadone Substance route: Oral Frequency: 1-2 times per week Amount used: $20 Age of first use: 47 Date of last use: 02/24/19 K2/Spice Substance route: Smoking Frequency: 3-6 times per week Amount used: 1 joint Age of first use: 41 Date of last use: 02/24/19 Admission Physical Exam BHS - Vital Signs Vital Signs: Vital Signs - 24 hr 03/03/19 14:36 Temperature 97.2 F L Pulse Rate 88 Respiratory 20 Rate Blood Pressure 168/106 H - Physical General Appearance: Yes: Moderate Distress, Tremorous, Irritable, Sweating, Anxious HEENTM: Yes: Normal ENT Inspection, MARK, Pharynx Normal Respiratory: Yes: Lungs Clear, Normal Breath Sounds, No Respiratory Distress Neck: Yes: Within Normal Limits, Supple, Trachea in good position Breast: Yes: Breast Exam Deferred Cardiology: Yes: Within Normal Limits, Regular Rhythm, S1, S2 Abdominal: Yes: Within Normal Limits, Normal Bowel Sounds, Non Tender, Flat, Soft Genitourinary: Yes: Within Normal Limits Back: Yes: Muscle Spasm Musculoskeletal: Yes: Back pain, Joint Stiffness, Muscle Pain Extremities: Yes: Tremors Neurological: Yes: tree sapper II-XII NML intact, Fully Oriented, Alert, Motor Strength 5/5 Integumentary: Yes: Dry Lymphatic: Yes: Within Normal Limits - Diagnostic (1) Opioid dependence with withdrawal Current Visit: No Status: Acute (2) Cannabis dependence with withdrawal Current Visit: No Status: Acute (3) Cocaine dependence with withdrawal Current Visit: No Status: Acute (4) HTN (hypertension) Current Visit: No Status: Chronic Qualifiers: Hypertension type: essential hypertension Qualified Code(s): I10 - Essential (primary) hypertension (5) Nicotine dependence Current Visit: No Status: Chronic Qualifiers: Nicotine product type: cigarettes Substance use status: uncomplicated Qualified Code(s): F17.210 - Nicotine dependence, cigarettes, uncomplicated (6) Depression Current Visit: Yes Status: Acute Cleared for Admission S - Detox or Rehab [facility] Level of Care: Medically Managed (and ativan regimen) Detox Regimen/Protocol: Methadone (ativan regmen) Breathalyzer - Breathalyzer Breathalyzer: 0 Urine Drug Screen - Test Device Lot number: [id number] Expiration date: 10/25/20 - Control Is test valid?: Yes - Results Drug screen NEGATIVE: No Urine drug screen results: THC-Marijuana, STU-Cocaine, BZO-Benzodiazepines Inpatient Rehab Admission - Rehab Decision to Admit Inpatient rehab admission?: No
[2019-03-03] MEDS ORDERED: MAG HYDROX/AL HYDROX/SIMETH 30 ML UNIT-DOSE CUP PO PRN (16:10)
[2019-03-03] MEDS ORDERED: cloNIDine HCL 0.1 MG TABLET PO PRN (16:10)
[2019-03-03] MEDS ORDERED: MENTHOL/PHENOL 1 EACH UD MM PRN (16:10)
[2019-03-03] MEDS ORDERED: MAGNESIUM CITRATE 300 ML BOTTLE PO PRN (16:10)
[2019-03-03] MEDS ORDERED: IBUPROFEN 400 MG TABLET (FP) PO PRN (16:10)
[2019-03-03] MEDS ORDERED: METHADONE HCL 10 MG TABLET (FOR DETOX USE ONLY) PO ONE (16:10)
[2019-03-03] MEDS ORDERED: hydrOXYzine PAMOATE 25 MG CAPSULE (FP) PO PRN (16:10)
[2019-03-03] MEDS ORDERED: MAGNESIUM HYDROX 2400MG/30ML ORAL SUSPENSION 30 ML CUP PO PRN (16:10)
[2019-03-03] MEDS ORDERED: LORazepam 1 MG TABLET PO PRN (16:10)
[2019-03-03] MEDS ORDERED: BISMUTH SUBSALICYLATE 524 MG/30 ML UD PO PRN (16:10)
[2019-03-03] MEDS ORDERED: ACETAMINOPHEN 325 MG TABLET (FP) PO PRN (16:10)
[2019-03-03] MEDS: LORazepam 2 MG TABLET PO SCH ×2 (17:40→22:24)
[2019-03-03] MEDS: NICOTINE POLACRILEX 2 MG GUM BUC PRN (20:51)
[2019-03-03] MEDS: THIAMINE HCL 100 MG TABLET (FP) PO SCH (22:24)
[2019-03-03] MEDS: MELATONIN 5 MG TABLETS PO PRN (22:25)
[2019-03-03] MEDS: ACETAMINOPHEN 325 MG TABLET (FP) PO PRN (22:26)
[2019-03-04] MEDS: LORazepam 2 MG TABLET PO SCH ×4 (06:58→22:34)
[2019-03-04] MEDS ORDERED: METHADONE HCL 5 MG TABLET (FOR DETOX USE ONLY) PO ONE (10:00)
[2019-03-04 10:02] LABS: HEMATOCRIT 37.6 % (32.4-45.2); HEMOGLOBIN 12.3 GM/dL (10.7-15.3); MCH 30.9 pg (25.7-33.7); MCHC 32.9 g/dl (32.0-36.0); MEAN CELL VOLUME 93.9 fl (80-96); MEAN PLT VOLUME 8.9 fl (7.5-11.1); PLATELET COUNT 291 K/MM3 (134-434); RDW 14.9 % (11.6-15.6); WHITE BLOOD COUNT 7.8 K/mm3 (4.0-10.0)
[2019-03-04 10:10] LABS: ALBUMIN 2.6 g/dl (3.4-5.0); BILIRUBIN,TOTAL 0.1 mg/dL (0.2-1); BLOOD UREA NITROGEN 17.1 mg/dL (7-18); CALCIUM 8.5 mg/dL (8.5-10.1); CREATININE 0.7 mg/dL (0.55-1.3); POTASSIUM 4.2 mmol/L (3.5-5.1); TOT PROT 5.7 g/dl (6.4-8.2)
[2019-03-04] MEDS: PRENATAL VITAMINS W/ FOLIC ACID TABLET (FP) PO SCH (11:17)
--- NOTE | 2019-03-04 18:38 | PN ---
[facility] CIWA - CIWA Score Nausea/Vomitin-Mild Nausea/No Vomiting Muscle Tremors: 3 Anxiety: 3 Agitation: 2 Paroxysmal Sweats: 3 Orientation: 0-Oriented Tacttile Disturbances: 0-None Auditory Disturbances: 0-None Visual Disturbances: 0-None Headache: 0-None Present CIWA-Ar Total Score: 12 BHS COWS - Scale Resting Pulse: 0= OR 80 or Below Sweatin= Chills/Flushing Restless Observation: 1= Difficult to Sit Still Pupil Size: 0= Normal to Room Light Bone or Joint Aches: 2= Severe Diffuse Aches Runny Nose/ Eye Tearin= Runny Nose/Eyes GI Upset > 30mins: 3= Vomiting/Diarrhea Tremor Observation of Outstretched Hands: 2= Slight Tremor Visible Yawning Observation: 0= None Anxiety or Irritability: 1=Feels Anxious/Irritable Goose Flesh Skin: 0=Smooth Skin COWS Score: 12 S Progress Note (SOAP) Subjective: Tremor, chills, sweating, bad dreams Objective: 03/04/19 18:35 Last Vital Signs Temp Pulse Resp BP Pulse Ox 98.1 F 69 18 156/90 03/04/19 18:08 03/04/19 18:08 03/04/19 18:08 03/04/19 18:08 Elevated b/p: has htn, on med Laboratory Tests 03/04/19 03/04/19 03/04/19 07:50 07:50 07:50 WBC 7.8 RBC 4.00 Hgb 12.3 Hct 37.6 MCV 93.9 MCH 30.9 MCHC 32.9 RDW 14.9 Plt Count 291 MPV 8.9 D Sodium 137 Potassium 4.2 Chloride 104 Carbon Dioxide 28 Anion Gap 5 L BUN 17.1 Creatinine 0.7 Est GFR (CKD-EPI)AfAm 120.43 Est GFR (CKD-EPI)NonAf 103.90 Random Glucose 95 Calcium 8.5 Total Bilirubin 0.1 L AST 22 ALT 27 Alkaline Phosphatase 64 Total Protein 5.7 L Albumin 2.6 L RPR Titer Nonreactive Labs reviewed: albumin 2.6 (low) Assessment: 03/04/19 18:36 Withdrawal sxs Hypoalbuminemia noted Plan: Continue detox Encouraged PO water intake Hypoalbuminemia: encouraged diet, continue ensure TID
[2019-03-04] MEDS: THIAMINE HCL 100 MG TABLET (FP) PO SCH (22:34)
[2019-03-04] MEDS: MELATONIN 5 MG TABLETS PO PRN (22:35)
[2019-03-04] MEDS: ACETAMINOPHEN 325 MG TABLET (FP) PO PRN (22:37)
[2019-03-05] MEDS: LORazepam 1 MG TABLET PO SCH ×4 (06:00→22:13)
[2019-03-05] MEDS ORDERED: METHADONE HCL 10 MG TABLET (FOR DETOX USE ONLY) PO ONE (10:00)
[2019-03-05] MEDS: PRENATAL VITAMINS W/ FOLIC ACID TABLET (FP) PO SCH (10:29)
--- NOTE | 2019-03-05 12:09 | PN ---
S CIWA - CIWA Score Nausea/Vomitin-No Nausea/No Vomiting Muscle Tremors: 2 Anxiety: 1-Mildly Anxious Agitation: 2 Paroxysmal Sweats: 2 Orientation: 0-Oriented Tacttile Disturbances: 0-None Auditory Disturbances: 0-None Visual Disturbances: 0-None Headache: 1-Very Mild CIWA-Ar Total Score: 8 S Progress Note (SOAP) Subjective: sweats shakes interrupted sleep body aches Objective: 03/05/19 12:09 Vital Signs Temperature 98.4 F 03/05/19 12:06 Pulse Rate 77 03/05/19 12:06 Respiratory Rate 18 03/05/19 12:06 Blood Pressure 108/73 03/05/19 12:06 O2 Sat by Pulse Oximetry (%) Laboratory Tests 03/04/19 03/04/19 03/04/19 07:50 07:50 07:50 WBC 7.8 RBC 4.00 Hgb 12.3 Hct 37.6 MCV 93.9 MCH 30.9 MCHC 32.9 RDW 14.9 Plt Count 291 MPV 8.9 D Sodium 137 Potassium 4.2 Chloride 104 Carbon Dioxide 28 Anion Gap 5 L BUN 17.1 Creatinine 0.7 Est GFR (CKD-EPI)AfAm 120.43 Est GFR (CKD-EPI)NonAf 103.90 Random Glucose 95 Calcium 8.5 Total Bilirubin 0.1 L AST 22 ALT 27 Alkaline Phosphatase 64 Total Protein 5.7 L Albumin 2.6 L RPR Titer Nonreactive labs noted aaox3 ambulating no acute distress Assessment: 03/05/19 12:09 withdrawals Plan: continue detox increase fluids
[2019-03-05 19:32] LABS: PH,URINE 7.5 (5.0-8.0); URINE APPEARANCE CLEAR; URINE BILIRUBIN NEGATIVE (NEGATIVE); URINE COLOR YELLOW; URINE GLUCOSE (UA) NEGATIVE (NEGATIVE); URINE KETONE NEGATIVE (NEGATIVE); URINE LEUK ESTERASE NEGATIVE (NEGATIVE); URINE NITRITE NEGATIVE (NEGATIVE); URINE PROTEIN NEGATIVE (NEGATIVE); URINE UROBILINOGEN 0.2 mg/dL (0.2-1.0)
[2019-03-05] MEDS: THIAMINE HCL 100 MG TABLET (FP) PO SCH (22:13)
[2019-03-05] MEDS: METHOCARBAMOL 500 MG TABLET PO PRN (22:13)
[2019-03-05] MEDS: MELATONIN 5 MG TABLETS PO PRN (22:14)
[2019-03-06] MEDS ORDERED: LORazepam 0.5 MG TABLET PO PRN
[2019-03-06] MEDS: LORazepam 0.5 MG TABLET PO SCH ×4 (05:36→22:19)
[2019-03-06] MEDS ORDERED: METHADONE HCL 5 MG TABLET (FOR DETOX USE ONLY) PO ONE (06:00)
[2019-03-06] MEDS: PRENATAL VITAMINS W/ FOLIC ACID TABLET (FP) PO SCH (10:38)
[2019-03-06] MEDS: NICOTINE POLACRILEX 2 MG GUM BUC PRN (10:52)
--- NOTE | 2019-03-06 12:24 | PN ---
[facility] CIWA - CIWA Score Nausea/Vomitin-No Nausea/No Vomiting Muscle Tremors: 2 Anxiety: 1-Mildly Anxious Agitation: 1-Slight > Activity Paroxysmal Sweats: 1-Minimal Palms Moist Orientation: 0-Oriented Tacttile Disturbances: 0-None Auditory Disturbances: 0-None Visual Disturbances: 0-None Headache: 0-None Present CIWA-Ar Total Score: 5 S COWS - Scale Resting Pulse: 0= MS 80 or Below Sweatin= Chills/Flushing Restless Observation: 0= Sits Still Pupil Size: 0= Normal to Room Light Bone or Joint Aches: 0= None Runny Nose/ Eye Tearin= None GI Upset > 30mins: 0= None Tremor Observation of Outstretched Hands: 0= None Yawning Observation: 1= 1-2x During Session Anxiety or Irritability: 1=Feels Anxious/Irritable Goose Flesh Skin: 0=Smooth Skin COWS Score: 3 S Progress Note (SOAP) Subjective: sweats body aches interrupted sleep Objective: 03/06/19 12:23 Vital Signs Temperature 98.6 F 03/06/19 09:31 Pulse Rate 80 03/06/19 09:31 Respiratory Rate 18 03/06/19 09:31 Blood Pressure 118/78 03/06/19 09:31 O2 Sat by Pulse Oximetry (%) Laboratory Tests 03/04/19 03/04/19 03/04/19 07:50 07:50 07:50 WBC 7.8 RBC 4.00 Hgb 12.3 Hct 37.6 MCV 93.9 MCH 30.9 MCHC 32.9 RDW 14.9 Plt Count 291 MPV 8.9 D Sodium 137 Potassium 4.2 Chloride 104 Carbon Dioxide 28 Anion Gap 5 L BUN 17.1 Creatinine 0.7 Est GFR (CKD-EPI)AfAm 120.43 Est GFR (CKD-EPI)NonAf 103.90 Random Glucose 95 Calcium 8.5 Total Bilirubin 0.1 L AST 22 ALT 27 Alkaline Phosphatase 64 Total Protein 5.7 L Albumin 2.6 L Urine Color Urine Appearance Urine pH Ur Specific [place] Urine Protein Urine Glucose (UA) Urine Ketones Urine Blood Urine Nitrite Urine Bilirubin Urine Urobilinogen Ur Leukocyte Esterase RPR Titer Nonreactive 03/04/19 15:36 WBC RBC Hgb Hct MCV MCH MCHC RDW Plt Count MPV Sodium Potassium Chloride Carbon Dioxide Anion Gap BUN Creatinine Est GFR (CKD-EPI)AfAm Est GFR (CKD-EPI)NonAf Random Glucose Calcium Total Bilirubin AST ALT Alkaline Phosphatase Total Protein Albumin Urine Color Yellow Urine Appearance Clear Urine pH 7.5 Ur Specific [place] 1.022 Urine Protein Negative Urine Glucose (UA) Negative Urine Ketones Negative Urine Blood Negative Urine Nitrite Negative Urine Bilirubin Negative Urine Urobilinogen 0.2 Ur Leukocyte Esterase Negative RPR Titer aaox3 lying in bed no acute distress Assessment: 03/06/19 12:24 mild withdrawals Plan: continue detox d/c in am
[2019-03-06] MEDS: THIAMINE HCL 100 MG TABLET (FP) PO SCH (22:19)
[2019-03-06] MEDS: METHOCARBAMOL 500 MG TABLET PO PRN (22:20)
[2019-03-07] MEDS ORDERED: LORazepam 0.5 MG TABLET PO ONE (05:00)
[2019-03-07 09:36] VITALS: BP 104/69; PULSE 85; TEMP 96.1
--- NOTE | 2019-03-07 09:52 | DS ---
[facility] Detox Discharge Summary Admission Date: 03/03/19 Discharge Date: 03/07/19 - History Present History: Cannabis Dependence, Cocaine Dependence, Opioid Dependence - Physical Exam Results Vital Signs: Vital Signs Temperature 96.1 F L 03/07/19 09:35 Pulse Rate 85 03/07/19 09:35 Respiratory Rate 16 03/07/19 09:35 Blood Pressure 104/69 03/07/19 09:35 O2 Sat by Pulse Oximetry (%) - Treatment Hospital Course: Detox Protocol Followed, Detoxed Safely, Responded well, Discharged Condition Good, Rehab Referral Accepted Patient has Accepted a Rehab Referral to: pt referred to [facility] - Medication Discharge Medications: Ambulatory Orders NK [No Known Home Medication] 09/24/18 - Diagnosis (1) Depression Current Visit: Yes Status: Chronic Qualifiers: Depression Type: unspecified Qualified Code(s): F32.9 - Major depressive disorder, single episode, unspecified (2) Anxiety Current Visit: No Status: Acute (3) Cannabis dependence with withdrawal Current Visit: Yes Status: Chronic (4) Cocaine dependence with withdrawal Current Visit: Yes Status: Chronic (5) Opioid dependence with withdrawal Current Visit: Yes Status: Chronic (6) HTN (hypertension) Current Visit: Yes Status: Chronic Qualifiers: Hypertension type: essential hypertension Qualified Code(s): I10 - Essential (primary) hypertension (7) Nicotine dependence Current Visit: Yes Status: Chronic Qualifiers: Nicotine product type: cigarettes Substance use status: uncomplicated Qualified Code(s): F17.210 - Nicotine dependence, cigarettes, uncomplicated - AMA Did Patient Leave Against Medical Advice: No
[2019-03-07] MEDS: PRENATAL VITAMINS W/ FOLIC ACID TABLET (FP) PO SCH (10:24)
== END 2019-03-07 14:13 | disposition other institution (70) | DRG 773 ==
LOC: YASAS 12:12 → Y6N 17:09
PROVIDERS: ADMIT Allergy & Immunology; ATTEND Allergy & Immunology
PROC: HZ2ZZZZ Detoxification Services for Substance Abuse Treatment (ICD-10-PCS; principal; 2019-03-03)
DX: F10.230 Alcohol dependence with withdrawal, uncomplicated (principal); F11.23 Opioid dependence with withdrawal; F14.20 Cocaine dependence, uncomplicated; F12.20 Cannabis dependence, uncomplicated; F17.210 Nicotine dependence, cigarettes, uncomplicated; F32.9 Major depressive disorder, single episode, unspecified; F41.9 Anxiety disorder, unspecified; I10 Essential (primary) hypertension; E88.09 Other disorders of plasma-protein metabolism, not elsewhere classified; Z91.5 Personal history of self-harm
CPT/HCPCS: 36415; 80053; 81003; 81025; 85027; 86593

== ENCOUNTER 2019-03-07 13:08 | Inpatient (IN) | payer OTHER ==
--- NOTE | 2019-03-07 12:40 | HP ---
[facility] Rehab Assess/Revision - Admission History Admitted to Rehab from: [facility] - Findings Detox History & Physical reviewed: Yes Concur with findings: Yes Inpatient Rehab Admission - Rehab Decision to Admit Inpatient rehab admission?: Yes - Initial Determination Are CD services needed?: Yes Free of communicable disease: Yes Not in need of hospitalization: Yes - Rehab Admission Criteria Previous failed treatment: Yes Poor recovery environment: Yes Comorbidities: Yes Lacks judgement: Yes Patient is meeting Inpatient Rehab admission criteria:: Yes
[~2019-03-07 13:08] MED LIST: LOPERAMIDE HCL 2 MG CAPSULE PO PRN; MAG HYDROX/AL HYDROX/SIMETH 30 ML UNIT-DOSE CUP PO PRN; MAGNESIUM CITRATE 300 ML BOTTLE PO PRN; MAGNESIUM HYDROX 2400MG/30ML ORAL SUSPENSION 30 ML CUP PO PRN; MENTHOL/PHENOL 1 EACH UD MM PRN; P-EPHED 60MG/TRIPROLIDI 2.5MG TABLET PO PRN; guaiFENesin 200 MG/10 ML 10 ML UNIT-DOSE CUPS PO PRN; hydrOXYzine PAMOATE 50 MG CAPSULE (FP) PO PRN
[2019-03-07] MEDS ORDERED: PNEUMOC 13-VAL CONJ-DIP CRM/PF 0.5 ML DISP.SYRIN IM ONE (14:36)
[2019-03-07] MEDS: ACETAMINOPHEN 325 MG TABLET (FP) PO PRN (18:17)
[2019-03-07] MEDS ORDERED: PT OWN MED DRAWER 7, Y5N ONE (19:32)
[2019-03-07] MEDS: THIAMINE HCL 100 MG TABLET (FP) PO SCH (21:50)
[2019-03-07] MEDS: MELATONIN 5 MG TABLETS PO PRN (21:51)
[2019-03-08] MEDS: PRENATAL VITAMINS W/ FOLIC ACID TABLET (FP) PO SCH (10:30)
[2019-03-08] MEDS: IBUPROFEN 400 MG TABLET (FP) PO PRN ×2 (10:30→21:55)
[2019-03-08] MEDS: NICOTINE 21 MG/24 HOURS TOPICAL PATCH TD SCH (10:30)
[2019-03-08] MEDS: NICOTINE POLACRILEX 4 MG GUM BUC PRN (10:30)
[2019-03-08] MEDS ORDERED: FLU VACCINE QUAD 60 MCG/0.5 ML (MDV 19-20) IM ONE (12:00)
[2019-03-08] MEDS ORDERED: PNEUMOCOCCAL 23 VACCINE 0.5 ML VIAL IM ONE (12:00)
[2019-03-08] MEDS: ACETAMINOPHEN 325 MG TABLET (FP) PO PRN (15:41)
[2019-03-08] MEDS: THIAMINE HCL 100 MG TABLET (FP) PO SCH (21:54)
[2019-03-08] MEDS: MELATONIN 5 MG TABLETS PO PRN (21:54)
[2019-03-09 07:04] VITALS: BP 122/86; PULSE 68; TEMP 98.1
[2019-03-09] MEDS: NICOTINE POLACRILEX 4 MG GUM BUC PRN (10:10)
[2019-03-09] MEDS: NICOTINE 21 MG/24 HOURS TOPICAL PATCH TD SCH (10:10)
[2019-03-09] MEDS: PRENATAL VITAMINS W/ FOLIC ACID TABLET (FP) PO SCH (10:10)
--- NOTE | 2019-03-09 10:23 | PN ---
[facility] Progress Note (SOAP) Subjective: Reporting no BM x 3 days, previous hx of opiate use. Objective: General: no apparent distress ABD: +BS, non-tender, non-distended MSK: full weight bearing Neuro: CN 2-12 intact Vital Signs Period Temp Pulse Resp BP Sys/Quick Pulse Ox Last 24 Hr 98.1 F 68 18-18 122/86 03/09/19 10:20 Assessment: constipation 03/09/19 10:21 Plan: Advised patient to ask for citroma or MOM; patient agreed.
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
--- NOTE | 2019-03-09 13:10 | DS ---
[facility] Rehab Discharge Summary - [facility] Rehab Discharge Summary Admission Date: 03/07/19 Discharge Date: 03/09/19 - History Present History: Cannabis dependence, Cocaine dependence, Opioid dependence Pertinent Past History: this 48 years old with heroin,alcohol dependence,cocaine and marijuana abuse, had previous admission in this facility last 09/24/18 to 09/27/18 no significant period of sobriety weight loss history of depression,no medication - Discharge Physical Exam Vital Signs: Vital Signs Temperature 98.1 F 03/09/19 07:00 Pulse Rate 68 03/09/19 07:00 Respiratory Rate 18 03/09/19 07:00 Blood Pressure 122/86 03/09/19 07:00 O2 Sat by Pulse Oximetry (%) Pertinent Admission Physical Exam Findings: Physical General Appearance: No apparent distress HEENTM: Normocephalic, MARK, Pharynx Normal Respiratory: Lungs Clear, s Neck: Supple, Trachea in good position Cardiology: S1, S2 Abdominal: +Bowel Sounds, Non Tender, Flat, Soft Musculoskeletal: Full weight bearing, full ROM, steady gait Neurological: aged or disabled carer II-XII NML intact, Fully Oriented-but hearing voices and hallucinating,Motor Strength 5/5 - Medication Discharge Medications: Ambulatory Orders NK [No Known Home Medication] 09/24/18 - Medication-Assisted Treatment (MAT) Medication-Assisted Treatment (MAT): No - Discharge Instructions Diet, activity, other medical instructions: Diet:as tolerated Activity: as tolerated. Other medical instructions: Please follow up with medical provider. - Diagnosis (1) Cannabis dependence with withdrawal Current Visit: No Status: Chronic (2) Cocaine dependence with withdrawal Current Visit: No Status: Chronic (3) Opioid dependence with withdrawal Current Visit: No Status: Chronic - Follow-up Referral Minutes to complete discharge: 15 - AMA Did Patient Leave Against Medical Advice: Yes Additional Comments: Although physical fit for discharge, her mental status is of concern to the staff and this provider. It was recommended that the patient stay and see psychiatric service because of her present condition of visual and auditory hallucinations. Patient refused. Patient does not at-home medications that need to be prescribed.
== END 2019-03-09 13:20 | disposition left against medical advice (07) | DRG 770 ==
LOC: YASAS 13:08 → Y3E 13:09
PROVIDERS: ADMIT Neuromusculoskeletal Medicine & OMM; ATTEND Neuromusculoskeletal Medicine & OMM
PROC: HZ42ZZZ Group Counseling for Substance Abuse Treatment, Cognitive-Behavioral (ICD-10-PCS; principal; 2019-03-07)
DX: F11.20 Opioid dependence, uncomplicated (principal); F14.20 Cocaine dependence, uncomplicated; F12.20 Cannabis dependence, uncomplicated; F17.210 Nicotine dependence, cigarettes, uncomplicated; I10 Essential (primary) hypertension; K59.00 Constipation, unspecified; R44.0 Auditory hallucinations; R44.1 Visual hallucinations; Z87.42 Personal history of other diseases of the female genital tract; Z91.5 Personal history of self-harm
CPT/HCPCS: 36415; 87389; 90732; G0008; G0009; Q2036

== ENCOUNTER 2019-05-23 08:07 | Inpatient (IN) | payer OTHER ==
--- NOTE | 2019-05-23 08:35 | BHS.RME ---
Substance Use & Tx History - Substance Use History Opiates (Heroin) Substance amount: 2-4 bags Frequency of use: Daily Substance route: Inhalation (ex: sniffing or snorting) Date of Last Use: 05/22/19 Cocaine (Crack) Substance amount: $30.-40. Frequency of use: Daily Substance route: Smoking Date of Last Use: 05/22/19 Physical/Psych/Mental Status - Behavior General Behavior: Increased activity (restlessness, agitation) Eye Contact: Normal - Cooperativeness Cooperativeness: Cooperative - Thinking Thought Processes: Tight Thought content: Future oriented - Physical Health Problems Is patient presently having any pain?: No Does patient presently have any injuries (include location): No Does patient currently have a fever: No COWS - Scale Resting Pulse: 1= [place] 81-100 Sweatin= Chills/Flushing Restless Observation: 1= Difficult to Sit Still Pupil Size: 0= Normal to Room Light Bone or Joint Aches: 1= Mild Discomfort Runny Nose/ Eye Tearin= Nasal Congestion GI Upset > 30mins: 1= Stomach Cramp Tremor Observation: 0= None Yawning Observation: 0= None Anxiety or Irritability: 2=Irritable/Anxious Goose Flesh Skin: 0=Smooth Skin COWS Score: 8
[2019-05-23 09:39] VITALS: BMI 18.6
--- NOTE | 2019-05-23 10:06 | HP ---
COWS - Scale Resting Pulse: 1= [place] 81-100 Sweatin= Chills/Flushing Restless Observation: 1= Difficult to Sit Still Pupil Size: 0= Normal to Room Light Bone or Joint Aches: 1= Mild Discomfort Runny Nose/ Eye Tearin= Nasal Congestion GI Upset > 30mins: 1= Stomach Cramp Tremor Observation: 0= None Yawning Observation: 0= None Anxiety or Irritability: 2=Irritable/Anxious Goose Flesh Skin: 0=Smooth Skin COWS Score: 8 CIWA Score - Admission Criteria OASAS Guidelines: Admission for Medically Managed Detox: Requires at least one of the followin. CIWA greater than 12 2. Seizures within the past 24 hours 3. Delirium tremens within the past 24 hours 4. Hallucinations within the past 24 hours 5. Acute intervention needed for co occurring medical disorder 6. Acute intervention needed for co occurring psychiatric disorder 7. Severe withdrawal that cannot be handled at a lower level of care (continued vomiting, continued diarrhea, abnormal vital signs) requiring intravenous medication and/or fluids 8. Admitting History and Physical - Admission Chief Complaint: Ms. Corral is a 48 yo woman who presents to [facility] stating "I need to get clean". She is requesting admission to detox for heroin and crack cocaine use. History of Present Illness: Ms. Corral is a 48 yo woman who presents to [facility] stating "I need to get clean". She is requesting admission to detox for heroin and crack cocaine use. She was last admitted here between Mar 03 and Mar 07 for detox. She then went to Rehab for 2 days, left AMA. She was at [facility] last night. She states she overdosed on fentanyl. The records from [facility] suicide attempt. The patient denies last night as a suicide attempt. PMH: HTN, Anemia, headaches PSH; C section ,cervical biopsy Psych: anxiety, multiple suicide attempts beginning as a teen: pills, slashed wrist, hanging Substance use history Heroin: 2 bags per day, last night 4 bags, sniff, one time skin pop, last use last night, first use age 47y. Overdose: last night. No Narcan kit Crack: $30.-40. per day, smoke, last use last night, first use age 18y EtoH: none since 2018. marijuana: once per month Nicotine: 10 cigs per day Soc: lives with boyfriend - Past Medical History ...LMP: 05/23/19 - Past Surgical History Past Surgical History: Yes: , Tubal Ligation - Smoking History Smoking history: Current every day smoker Have you smoked in the past 12 months: Yes Aproximately how many cigarettes per day: 10 - Alcohol/Substance Use Hx Alcohol Use: Yes Admission [facility] - HPI Allergies/Adverse Reactions: Allergies Allergy/AdvReac Type Severity Reaction Status Date / Time No Known Allergies Allergy Verified 05/23/19 09:31 Exam Limitations: No Limitations - Ebola screening Have you traveled outside of the country in the last 21 days: No Have you had contact with anyone from an Ebola affected area: No Have you been sick,other than usual withdrawal symptoms: No Do you have a fever: No - Review of Systems Constitutional: Unintentional Wgt. Loss EENT: reports: Blurred Vision (wears glasses to read, not with her) Respiratory: reports: No Symptoms reported Cardiac: reports: No Symptoms Reported GI: reports: Nausea : reports: No Symptoms Reported Musculoskeletal: reports: Back Pain (fell last night, given a Lidoderm patch at [facility], now it is "tender") Integumentary: reports: Other (scars on forearms from prior suicide attempts) Neuro: reports: No Symptoms reported Endocrine: reports: No Symptoms Reported Hematology: reports: Anemia Psychiatric: reports: Anxious Patient History - Patient Medical History Hx Anemia: Yes (Not on medication) Hx Asthma: No Hx Chronic Obstructive Pulmonary Disease (COPD): No Hx Cancer: No Hx Cardiac Disorders: No Hx Congestive Heart Failure: No Hx Hypertension: Yes (not on medication) Hx Hypercholesterolemia: No Hx Pacemaker: No HX Cerebrovascular Accident: No Hx Seizures: No Hx Dementia: No Hx Diabetes: No Hx Gastrointestinal Disorders: No Hx Liver Disease: No Hx Genitourinary Disorders: No Hx Sexually Transmitted Disorders: Yes (chlamydia) Hx Renal Disease (ESRD): No Hx Thyroid Disease: No Hx Human Immunodeficiency Virus (HIV): No (Negative 2017) Hx Hepatitis C: No Hx Depression: Yes Hx Suicide Attempt: Yes (cutting wrist at age 15, february 2019 with pills/ slashing wrist, rope/neck) Hx Bipolar Disorder: No Hx Schizophrenia: No - Patient Surgical History Past Surgical History: No Hx Neurologic Surgery: No Hx Cataract Extraction: No Hx Cardiac Surgery: No Hx Lung Surgery: No Hx Breast Surgery: No Hx Breast Biopsy: No Hx Abdominal Surgery: No Hx Appendectomy: No Hx Cholecystectomy: No Hx Genitourinary Surgery: No Hx Section: Yes (x1) Hx Orthopedic Surgery: No Other Surgical History: cervical biopsy in 1995, tubal ligation -2001 Anesthesia Reaction: No - PPD History Previous Implant?: Yes Documented Results: Negative w/proof Date: 09/25/18 - Reproductive History Last Menstrual Period: 05/23/19 - Smoking Cessation Smoking history: Current every day smoker Have you smoked in the past 12 months: Yes Aproximately how many cigarettes per day: 10 Hx Chewing Tobacco Use: No Initiated information on smoking cessation: Yes 'Breaking Loose' booklet given: 05/23/19 - Substances abused Heroin Substance route: Skin popping Frequency: Daily Amount used: 2-4 bags Age of first use: 47 Date of last use: 05/22/19 Crack Substance route: Smoking Frequency: Daily Amount used: $30-40 Age of first use: 18 Date of last use: 05/22/19 Admission Physical Exam [facility] - Vital Signs Vital Signs: Vital Signs - 24 hr 05/23/19 09:34 Temperature 97.1 F L Pulse Rate 85 Respiratory 18 Rate Blood Pressure 141/94 - Physical General Appearance: Yes: Thin, Anxious HEENTM: Yes: Hearing grossly Normal, Normocephalic, Normal Voice Respiratory: Yes: Lungs Clear, Normal Breath Sounds Neck: Yes: Within Normal Limits Breast: Yes: Breast Exam Deferred Cardiology: Yes: S1, S2 Abdominal: Yes: Normal Bowel Sounds, Non Tender, Flat, Soft Back: Yes: Normal Inspection, Other (mild tenderness lumbar spine, Lidoderm patch in place, patch removed for inspection) Musculoskeletal: Yes: Within Normal Limits Extremities: Yes: Within Normal Limits Neurological: Yes: Fully Oriented, Alert Integumentary: Yes: Other (above) - Diagnostic (1) History of suicide attempt Current Visit: Yes Status: Chronic (2) Anxiety Current Visit: Yes Status: Acute (3) Cocaine dependence with withdrawal Current Visit: No Status: Chronic (4) Nicotine dependence Current Visit: Yes Status: Chronic Qualifiers: Nicotine product type: cigarettes Substance use status: uncomplicated Qualified Code(s): F17.210 - Nicotine dependence, cigarettes, uncomplicated (5) Opioid dependence with withdrawal Current Visit: Yes Status: Acute Cleared for Admission [facility] - Detox or Rehab [facility] Level of Care: Medically Managed Breathalyzer - Breathalyzer Breathalyzer: 0 Urine Drug Screen - Test Device Lot number: [id number] Expiration date: 10/25/20 - Control Is test valid?: Yes - Results Drug screen NEGATIVE: No Urine drug screen results: THC-Marijuana, STU-Cocaine, BZO-Benzodiazepines Inpatient Rehab Admission - Rehab Decision to Admit Inpatient rehab admission?: No
[2019-05-23] MEDS ORDERED: BISMUTH SUBSALICYLATE 262 MG/15 ML BTL PO PRN (10:11)
[2019-05-23] MEDS ORDERED: MAGNESIUM CITRATE 300 ML BOTTLE PO PRN (10:11)
[2019-05-23] MEDS ORDERED: MENTHOL/PHENOL 1 EACH UD MM PRN (10:11)
[2019-05-23] MEDS ORDERED: IBUPROFEN 400 MG TABLET (FP) PO PRN (10:11)
[2019-05-23] MEDS ORDERED: MAG HYDROX/AL HYDROX/SIMETH 30 ML UNIT-DOSE CUP PO PRN (10:11)
[2019-05-23] MEDS ORDERED: ACETAMINOPHEN 325 MG TABLET (FP) PO PRN (10:11)
[2019-05-23] MEDS ORDERED: METHOCARBAMOL 500 MG TABLET PO PRN (10:11)
[2019-05-23] MEDS ORDERED: MAGNESIUM HYDROX 2400MG/30ML ORAL SUSPENSION 30 ML CUP PO PRN (10:11)
[2019-05-23] MEDS ORDERED: METHADONE HCL 10 MG TABLET (FOR DETOX USE ONLY) PO ONE (10:30)
[2019-05-23] MEDS: NICOTINE 14 MG/24 HOURS TOPICAL PATCH TD SCH (11:52)
[2019-05-23 15:05] LABS: ALBUMIN 3.5 g/dl (3.4-5.0); BILIRUBIN,TOTAL 0.6 mg/dL (0.2-1); BLOOD UREA NITROGEN 15.1 mg/dL (7-18); CREATININE 0.9 mg/dL (0.55-1.3); POTASSIUM 4.1 mmol/L (3.5-5.1); TOT PROT 7.5 g/dl (6.4-8.2)
[2019-05-23 15:06] LABS: HEMATOCRIT 42.5 % (32.4-45.2); MCH 31.6 pg (25.7-33.7); MEAN CELL VOLUME 95.8 fl (80-96); MEAN PLT VOLUME 9.2 fl (7.5-11.1); PLATELET COUNT 339 K/MM3 (134-434); RBC 4.43 M/mm3 (3.60-5.2); RDW 14.9 % (11.6-15.6); WHITE BLOOD COUNT 11.7 K/mm3 (4.0-10.0)
[2019-05-23] MEDS: MELATONIN 5 MG TABLETS PO PRN (22:05)
[2019-05-23] MEDS: THIAMINE HCL 100 MG TABLET (FP) PO SCH (22:05)
[2019-05-24] MEDS ORDERED: METHADONE (DETOX) 20 MG, METHADONE (DETOX) 5 MG PO ONE (10:00)
[2019-05-24] MEDS: NICOTINE 14 MG/24 HOURS TOPICAL PATCH TD SCH (10:34)
[2019-05-24] MEDS: PRENATAL VITAMINS W/ FOLIC ACID TABLET (FP) PO SCH (10:34)
[2019-05-24] MEDS ORDERED: METHADONE HCL 5 MG TABLET (FOR DETOX USE ONLY) ONE (10:34)
[2019-05-24] MEDS ORDERED: METHADONE HCL 10 MG TABLET (FOR DETOX USE ONLY) ONE (10:34)
--- NOTE | 2019-05-24 11:35 | PN ---
BHS COWS - Scale Resting Pulse: 0= [place] 80 or Below Sweatin= No chills or Flushing Restless Observation: 1= Difficult to Sit Still Pupil Size: 0= Normal to Room Light Bone or Joint Aches: 1= Mild Discomfort Runny Nose/ Eye Tearin= Nasal Congestion GI Upset > 30mins: 1= Stomach Cramp Tremor Observation of Outstretched Hands: 1= Tremor [place], Not Seen Yawning Observation: 0= None Anxiety or Irritability: 0= None Goose Flesh Skin: 3=Piloerection COWS Score: 8 S Progress Note (SOAP) Subjective: pt admitted yesterday after using fentanyl and overdosing- pt states she rarely uses opioids and accidentally used too much- d/w pt re MAT- pt refused O: Vital Signs - 24 hr 05/23/19 05/23/19 05/24/19 12:27 20:55 01:48 Temperature 98.2 F 98.2 F Pulse Rate 74 78 Respiratory 16 18 16 Rate Blood Pressure 126/72 120/73 05/24/19 05/24/19 05/24/19 03:30 06:30 07:37 Temperature 97.6 F Pulse Rate 58 L Respiratory 16 17 18 Rate Blood Pressure 131/71 Laboratory Tests 05/23/19 05/23/19 05/23/19 10:25 10:25 10:25 WBC 11.7 H RBC 4.43 Hgb 14.0 Hct 42.5 MCV 95.8 MCH 31.6 MCHC 33.0 RDW 14.9 Plt Count 339 MPV 9.2 Sodium 137 Potassium 4.1 Chloride 102 Carbon Dioxide 28 Anion Gap 6 L BUN 15.1 Creatinine 0.9 Est GFR (CKD-EPI)AfAm 88.87 Est GFR (CKD-EPI)NonAf 76.68 Random Glucose 113 H Calcium 9.0 Total Bilirubin 0.6 AST 27 ALT 25 Alkaline Phosphatase 79 Total Protein 7.5 Albumin 3.5 RPR Titer HIV 1&2 Antibody Screen Negative HIV P24 Antigen Negative 05/23/19 10:25 WBC RBC Hgb Hct MCV MCH MCHC RDW Plt Count MPV Sodium Potassium Chloride Carbon Dioxide Anion Gap BUN Creatinine Est GFR (CKD-EPI)AfAm Est GFR (CKD-EPI)NonAf Random Glucose Calcium Total Bilirubin AST ALT Alkaline Phosphatase Total Protein Albumin RPR Titer Nonreactive HIV 1&2 Antibody Screen HIV P24 Antigen a/p: OUD continue detox protocol- refused MAT outpt
--- NOTE | 2019-05-24 14:23 | CONSULT ---
[facility] Psychiatric Consult - Data Date of interview: 05/24/19 Admission source: [facility] Identifying data: Ms Corral is a 48 years old Black female, mother of 6 children, unemployed receiving food stamp, living with her boyfriend seeking detox treatment for opioid, cocaine and cannabis Substance Abuse History: Reports history of heroin, crack cocaine and marijuana use. Refer to addiction counselor's summary for further information Medical History: Significant for hypertension, migraine headache, history of anemia, treatment for chlamydia and surgeries(cervical biopsy in 1995, c- section in 2003, tubal ligation in 2001). Smokes 10 cigarettes daily Psychiatric History: Patient is a poor and nreliable historian. Reports that her first psychiatric contact occured couple of years ago when she was admitted to [facility] for suicidal attempt by overdose on pills and cutting herself. Claims that she was diagnosed with Anxiety Disorder and started on psychotropic medication. Reports two subsequent psychiatric hospitalizations at [facility] and another facility with in the beginning of its name. Most recent admission was in 2019 at [facility]. Denies currently receiving outpatient psychiatric treatment nor taking medication. Claims that she used to attend a clinic on [address] in the [place] 2 years ago and last took medication one year ago. She cannot give any name of medication she has ever been on. At present, denies experiencing psychotic, manic or depressive symptoms , S/H ideations. However, she is moderately irritable and reports feeling anxious and sleeping poorly Physical/Sexual Abuse/Trauma History: Denies history of abuse as a child or DV relationship as an adult Mental Status Exam - Mental Status Exam Alert and Oriented to: Place, Person Cognitive Function: Fair Patient Appearance: Disheveled Mood: Anxious, Irritable Affect: Blunted Patient Behavior: Uncooperative Speech Pattern: Garbled Voice Loudness: Normal Thought Process: Intact, Goal Oriented Hallucinations: Denies Suicidal Ideation: Denies Homicidal Ideation: Denies Insight/Judgement: Poor Sleep: Poorly Appetite: Poor Muscle strength/Tone: Normal Gait/Station: Normal Psychiatric Findings - Problem List ([place] 1, 2,3) (1) Substance-induced anxiety disorder Current Visit: Yes Status: Acute (2) Substance-induced sleep disorder Current Visit: Yes Status: Acute (3) Opioid dependence with withdrawal Current Visit: Yes Status: Acute (4) Cocaine dependence with withdrawal Current Visit: No Status: Acute (5) Cannabis dependence with withdrawal Current Visit: No Status: Acute (6) Nicotine dependence Current Visit: Yes Status: Chronic Qualifiers: Nicotine product type: cigarettes Substance use status: uncomplicated Qualified Code(s): F17.210 - Nicotine dependence, cigarettes, uncomplicated (7) HTN (hypertension) Current Visit: No Status: Chronic Qualifiers: Hypertension type: essential hypertension Qualified Code(s): I10 - Essential (primary) hypertension (8) Anemia Current Visit: Yes Status: Resolved - Initial Treatment Plan Initial Treatment Plan: 1) Continue Vistaril 25 mg po Q 6hrs prn for anxiety ordered by vice president of software development. 2) Continue inpatient detoxification
[2019-05-24] MEDS: hydrOXYzine PAMOATE 25 MG CAPSULE (FP) PO PRN (17:03)
[2019-05-24] MEDS: cloNIDine HCL 0.1 MG TABLET PO PRN (17:04)
--- NOTE | 2019-05-24 17:16 | PN ---
S Progress Note Note: Vital Signs - 24 hr 05/23/19 05/24/19 05/24/19 20:55 01:48 03:30 Temperature 98.2 F Pulse Rate 78 Respiratory 18 16 16 Rate Blood Pressure 120/73 05/24/19 05/24/19 05/24/19 06:30 07:37 08:55 Temperature 97.6 F 98.1 F Pulse Rate 58 L 62 Respiratory 17 18 16 Rate Blood Pressure 131/71 127/99 05/24/19 05/24/19 15:50 17:05 Temperature 98.3 F 100 F H Pulse Rate 77 69 Respiratory 18 16 Rate Blood Pressure 140/80 199/130 H P : Clonidine 0.2 mg
[2019-05-24] MEDS ORDERED: cloNIDine HCL 0.1 MG TABLET PO ONE (17:30)
[2019-05-24] MEDS ORDERED: amLODIPine BESYLATE 5 MG TABLET (FP) PO ONE (18:30)
[2019-05-24] MEDS: THIAMINE HCL 100 MG TABLET (FP) PO SCH (23:27)
[2019-05-25] MEDS ORDERED: METHADONE HCL 10 MG TABLET (FOR DETOX USE ONLY) PO ONE (10:00)
[2019-05-25] MEDS: NICOTINE 14 MG/24 HOURS TOPICAL PATCH TD SCH (10:24)
[2019-05-25] MEDS: PRENATAL VITAMINS W/ FOLIC ACID TABLET (FP) PO SCH (10:24)
--- NOTE | 2019-05-25 14:53 | PN ---
BHS COWS - Scale Resting Pulse: 1= [place] 81-100 Sweatin= Chills/Flushing Restless Observation: 1= Difficult to Sit Still Pupil Size: 1= Pupils >than Normal Bone or Joint Aches: 1= Mild Discomfort Runny Nose/ Eye Tearin= Nasal Congestion GI Upset > 30mins: 1= Stomach Cramp Tremor Observation of Outstretched Hands: 0= None Yawning Observation: 0= None Anxiety or Irritability: 1=Feels Anxious/Irritable Goose Flesh Skin: 0=Smooth Skin COWS Score: 8 BHS Progress Note (SOAP) Subjective: interrupted sleep, sweats, dizziness , but better Objective: 05/25/19 14:51 Vital Signs Temperature 97.5 F L 05/25/19 08:55 Pulse Rate 65 05/25/19 08:55 Respiratory Rate 18 05/25/19 08:55 Blood Pressure 111/68 05/25/19 08:55 O2 Sat by Pulse Oximetry (%) Laboratory Tests 05/23/19 05/23/19 05/23/19 10:25 10:25 10:25 WBC 11.7 H RBC 4.43 Hgb 14.0 Hct 42.5 MCV 95.8 MCH 31.6 MCHC 33.0 RDW 14.9 Plt Count 339 MPV 9.2 Sodium 137 Potassium 4.1 Chloride 102 Carbon Dioxide 28 Anion Gap 6 L BUN 15.1 Creatinine 0.9 Est GFR (CKD-EPI)AfAm 88.87 Est GFR (CKD-EPI)NonAf 76.68 Random Glucose 113 H Calcium 9.0 Total Bilirubin 0.6 AST 27 ALT 25 Alkaline Phosphatase 79 Total Protein 7.5 Albumin 3.5 RPR Titer HIV 1&2 Antibody Screen Negative HIV P24 Antigen Negative 05/23/19 10:25 WBC RBC Hgb Hct MCV MCH MCHC RDW Plt Count MPV Sodium Potassium Chloride Carbon Dioxide Anion Gap BUN Creatinine Est GFR (CKD-EPI)AfAm Est GFR (CKD-EPI)NonAf Random Glucose Calcium Total Bilirubin AST ALT Alkaline Phosphatase Total Protein Albumin RPR Titer Nonreactive HIV 1&2 Antibody Screen HIV P24 Antigen pt aox3 in nad ambulating , staedy gait Assessment: 05/25/19 14:52 withdrawal sx;s Plan: cont. detox increase fluids
[2019-05-25] MEDS: cloNIDine HCL 0.1 MG TABLET PO PRN (22:59)
[2019-05-25] MEDS: MELATONIN 5 MG TABLETS PO PRN (22:59)
[2019-05-25] MEDS: THIAMINE HCL 100 MG TABLET (FP) PO SCH (22:59)
[2019-05-26] MEDS: ACETAMINOPHEN 325 MG TABLET (FP) PO PRN ×2 (03:56→22:40)
[2019-05-26] MEDS ORDERED: METHADONE HCL 10 MG TABLET (FOR DETOX USE ONLY) ONE (09:39)
[2019-05-26] MEDS ORDERED: METHADONE HCL 5 MG TABLET (FOR DETOX USE ONLY) ONE (09:39)
[2019-05-26] MEDS ORDERED: METHADONE (DETOX) 10 MG, METHADONE (DETOX) 5 MG PO ONE (10:00)
[2019-05-26] MEDS: PRENATAL VITAMINS W/ FOLIC ACID TABLET (FP) PO SCH (10:45)
[2019-05-26] MEDS: NICOTINE 14 MG/24 HOURS TOPICAL PATCH TD SCH (10:45)
--- NOTE | 2019-05-26 18:13 | PN ---
BHS COWS - Scale Resting Pulse: 0= [place] 80 or Below Sweatin= Chills/Flushing Restless Observation: 1= Difficult to Sit Still Pupil Size: 0= Normal to Room Light Bone or Joint Aches: 1= Mild Discomfort Runny Nose/ Eye Tearin= None GI Upset > 30mins: 0= None Tremor Observation of Outstretched Hands: 0= None Yawning Observation: 1= 1-2x During Session Anxiety or Irritability: 2=Irritable/Anxious Goose Flesh Skin: 0=Smooth Skin COWS Score: 6 BHS Progress Note (SOAP) Subjective: Interrupted Sleep, Body Aches, Sweating, Anxious. Patient reports That Current withdrawal Detox Symptoms in General Are Gradually Beginning to Diminish in Severity. Objective: PATIENT A & O X 3, OBSERVED AMBULATING ON DETOX UNIT UNASSISTED. IN NO ACUTE DISTRESS. 05/26/19 18:15 Vital Signs Temperature 98.1 F 05/26/19 08:33 Pulse Rate 69 05/26/19 08:33 Respiratory Rate 16 05/26/19 08:33 Blood Pressure 113/69 05/26/19 08:33 O2 Sat by Pulse Oximetry (%) Laboratory Tests 05/23/19 05/23/19 05/23/19 10:25 10:25 10:25 WBC 11.7 H RBC 4.43 Hgb 14.0 Hct 42.5 MCV 95.8 MCH 31.6 MCHC 33.0 RDW 14.9 Plt Count 339 MPV 9.2 Sodium 137 Potassium 4.1 Chloride 102 Carbon Dioxide 28 Anion Gap 6 L BUN 15.1 Creatinine 0.9 Est GFR (CKD-EPI)AfAm 88.87 Est GFR (CKD-EPI)NonAf 76.68 Random Glucose 113 H Calcium 9.0 Total Bilirubin 0.6 AST 27 ALT 25 Alkaline Phosphatase 79 Total Protein 7.5 Albumin 3.5 RPR Titer HIV 1&2 Antibody Screen Negative HIV P24 Antigen Negative 05/23/19 10:25 WBC RBC Hgb Hct MCV MCH MCHC RDW Plt Count MPV Sodium Potassium Chloride Carbon Dioxide Anion Gap BUN Creatinine Est GFR (CKD-EPI)AfAm Est GFR (CKD-EPI)NonAf Random Glucose Calcium Total Bilirubin AST ALT Alkaline Phosphatase Total Protein Albumin RPR Titer Nonreactive HIV 1&2 Antibody Screen HIV P24 Antigen LABS NOTED. PATIENT AFEBRILE. 05/26/19 18:17 Assessment: 05/26/19 18:17 WITHDRAWAL SYMPTOMS. Plan: CONTINUE DETOX. INCREASE DAILY ORAL WATER INTAKE.
[2019-05-26] MEDS: MELATONIN 5 MG TABLETS PO PRN (22:39)
[2019-05-26] MEDS: THIAMINE HCL 100 MG TABLET (FP) PO SCH (22:39)
[2019-05-27] MEDS ORDERED: METHADONE HCL 10 MG TABLET (FOR DETOX USE ONLY) PO ONE (10:00)
[2019-05-27] MEDS: NICOTINE 14 MG/24 HOURS TOPICAL PATCH TD SCH (10:34)
[2019-05-27] MEDS: PRENATAL VITAMINS W/ FOLIC ACID TABLET (FP) PO SCH (10:35)
[2019-05-27] MEDS: hydrOXYzine PAMOATE 25 MG CAPSULE (FP) PO PRN (12:43)
[2019-05-27] MEDS: amLODIPine BESYLATE 10 MG TABLET (FP) PO SCH (13:34)
--- NOTE | 2019-05-27 17:02 | PN ---
S COWS - Scale Resting Pulse: 0= [place] 80 or Below Sweatin= Chills/Flushing Restless Observation: 0= Sits Still Pupil Size: 0= Normal to Room Light Bone or Joint Aches: 0= None Runny Nose/ Eye Tearin= None GI Upset > 30mins: 1= Stomach Cramp Tremor Observation of Outstretched Hands: 0= None Yawning Observation: 0= None Anxiety or Irritability: 2=Irritable/Anxious Goose Flesh Skin: 0=Smooth Skin COWS Score: 4 S Progress Note (SOAP) Subjective: Anxious, interrupted sleep, headache from sai (stated she took the sai out of her hair), wants ensure TID Objective: 05/27/19 16:57 Last Vital Signs Temp Pulse Resp BP Pulse Ox 97.6 F 64 19 184/110 H 05/27/19 12:36 05/27/19 12:36 05/27/19 12:36 05/27/19 12:36 Elevated b/p, has htn as per chart, pt denies any h/o htn Laboratory Tests 05/23/19 05/23/19 05/23/19 10:25 10:25 10:25 WBC 11.7 H RBC 4.43 Hgb 14.0 Hct 42.5 MCV 95.8 MCH 31.6 MCHC 33.0 RDW 14.9 Plt Count 339 MPV 9.2 Sodium 137 Potassium 4.1 Chloride 102 Carbon Dioxide 28 Anion Gap 6 L BUN 15.1 Creatinine 0.9 Est GFR (CKD-EPI)AfAm 88.87 Est GFR (CKD-EPI)NonAf 76.68 Random Glucose 113 H Calcium 9.0 Total Bilirubin 0.6 AST 27 ALT 25 Alkaline Phosphatase 79 Total Protein 7.5 Albumin 3.5 RPR Titer HIV 1&2 Antibody Screen Negative HIV P24 Antigen Negative 05/23/19 10:25 WBC RBC Hgb Hct MCV MCH MCHC RDW Plt Count MPV Sodium Potassium Chloride Carbon Dioxide Anion Gap BUN Creatinine Est GFR (CKD-EPI)AfAm Est GFR (CKD-EPI)NonAf Random Glucose Calcium Total Bilirubin AST ALT Alkaline Phosphatase Total Protein Albumin RPR Titer Nonreactive HIV 1&2 Antibody Screen HIV P24 Antigen Labs reviewed: wbc 11.7 (high), serum glucose 113 (high) Assessment: 05/27/19 16:58 Withdrawal sxs Noted with leukocytosis and hyperglycemia Plan: Continue detox Encouraged PO water intake Consider discharging patient tomorrow if repeated lab results acceptable HTN: started on norvasc 10 mg PO daily, monitor b/p, follow up with PCP for management Leukocytosis: asymptomatic for infection, repeat CBC Hyperglycemia: denies DM, repeat fasting glucose, check A1c
[2019-05-27] MEDS: THIAMINE HCL 100 MG TABLET (FP) PO SCH (22:30)
[2019-05-27] MEDS: MELATONIN 5 MG TABLETS PO PRN (22:31)
[2019-05-28] MEDS ORDERED: METHADONE HCL 5 MG TABLET (FOR DETOX USE ONLY) PO ONE (06:00)
--- NOTE | 2019-05-28 10:02 | DS ---
[facility] Detox Discharge Summary Admission Date: 05/23/19 Discharge Date: 05/28/19 - History Present History: Cannabis Dependence, Cocaine Dependence, Opioid Dependence - Physical Exam Results Vital Signs: Vital Signs Temperature 97.9 F 05/28/19 06:07 Pulse Rate 63 05/28/19 06:07 Respiratory Rate 16 05/28/19 06:07 Blood Pressure 97/64 05/28/19 06:07 O2 Sat by Pulse Oximetry (%) Pertinent Admission Physical Exam Findings: Vital Signs Temperature 97.9 F 05/28/19 06:07 Pulse Rate 63 05/28/19 06:07 Respiratory Rate 16 05/28/19 06:07 Blood Pressure 97/64 05/28/19 06:07 O2 Sat by Pulse Oximetry (%) Laboratory Tests 05/23/19 05/23/19 05/23/19 10:25 10:25 10:25 WBC 11.7 H RBC 4.43 Hgb 14.0 Hct 42.5 MCV 95.8 MCH 31.6 MCHC 33.0 RDW 14.9 Plt Count 339 MPV 9.2 Sodium 137 Potassium 4.1 Chloride 102 Carbon Dioxide 28 Anion Gap 6 L BUN 15.1 Creatinine 0.9 Est GFR (CKD-EPI)AfAm 88.87 Est GFR (CKD-EPI)NonAf 76.68 Random Glucose 113 H Calcium 9.0 Total Bilirubin 0.6 AST 27 ALT 25 Alkaline Phosphatase 79 Total Protein 7.5 Albumin 3.5 RPR Titer HIV 1&2 Antibody Screen Negative HIV P24 Antigen Negative 05/23/19 10:25 WBC RBC Hgb Hct MCV MCH MCHC RDW Plt Count MPV Sodium Potassium Chloride Carbon Dioxide Anion Gap BUN Creatinine Est GFR (CKD-EPI)AfAm Est GFR (CKD-EPI)NonAf Random Glucose Calcium Total Bilirubin AST ALT Alkaline Phosphatase Total Protein Albumin RPR Titer Nonreactive HIV 1&2 Antibody Screen HIV P24 Antigen aaox3 ambulating no acute distress - Treatment Hospital Course: Detox Protocol Followed, Detoxed Safely, Responded well, Discharged Condition Good, Rehab Referral Accepted Patient has Accepted a Rehab Referral to: [facility] - Medication Discharge Medications: Ambulatory Orders NK [No Known Home Medication] 09/24/18 - Diagnosis (1) Anxiety Current Visit: Yes Status: Acute (2) Opioid dependence with withdrawal Current Visit: Yes Status: Chronic (3) Substance-induced anxiety disorder Current Visit: Yes Status: Acute (4) Substance-induced sleep disorder Current Visit: Yes Status: Acute (5) History of suicide attempt Current Visit: Yes Status: Chronic (6) Nicotine dependence Current Visit: Yes Status: Chronic Qualifiers: Nicotine product type: cigarettes Substance use status: uncomplicated Qualified Code(s): F17.210 - Nicotine dependence, cigarettes, uncomplicated (7) Anemia Current Visit: Yes Status: Resolved (8) Cannabis dependence with withdrawal Current Visit: No Status: Acute (9) Cocaine dependence with withdrawal Current Visit: No Status: Acute (10) Depression Current Visit: No Status: Chronic Qualifiers: Depression Type: unspecified Qualified Code(s): F32.9 - Major depressive disorder, single episode, unspecified (11) HTN (hypertension) Current Visit: No Status: Chronic Qualifiers: Hypertension type: essential hypertension Qualified Code(s): I10 - Essential (primary) hypertension - AMA Did Patient Leave Against Medical Advice: No
[2019-05-28] MEDS: PRENATAL VITAMINS W/ FOLIC ACID TABLET (FP) PO SCH (10:21)
[2019-05-28] MEDS: NICOTINE 14 MG/24 HOURS TOPICAL PATCH TD SCH (10:21)
[2019-05-28] MEDS: amLODIPine BESYLATE 10 MG TABLET (FP) PO SCH (10:23)
[2019-05-28 14:28] VITALS: BP 120/102; PULSE 75; TEMP 98.2
== END 2019-05-28 15:05 | disposition other institution (70) | DRG 773 ==
LOC: YASAS 08:07 → Y6N 10:14
PROVIDERS: ADMIT Allergy & Immunology; ATTEND Allergy & Immunology
PROC: HZ2ZZZZ Detoxification Services for Substance Abuse Treatment (ICD-10-PCS; principal; 2019-05-23)
DX: F11.23 Opioid dependence with withdrawal (principal); F14.23 Cocaine dependence with withdrawal; F12.20 Cannabis dependence, uncomplicated; F17.210 Nicotine dependence, cigarettes, uncomplicated; F41.8 Other specified anxiety disorders; F32.9 Major depressive disorder, single episode, unspecified; F19.280 Other psychoactive substance dependence with psychoactive substance-induced anxiety disorder; F19.282 Other psychoactive substance dependence with psychoactive substance-induced sleep disorder; D64.9 Anemia, unspecified; I10 Essential (primary) hypertension; R73.9 Hyperglycemia, unspecified; D72.829 Elevated white blood cell count, unspecified; Z86.19 Personal history of other infectious and parasitic diseases; Z91.5 Personal history of self-harm
CPT/HCPCS: 36415; 80053; 85027; 86593; 87389; J0735

== ENCOUNTER 2019-05-28 16:15 | Inpatient (IN) | payer OTHER ==
[2019-05-28] MEDS ORDERED: NICOTINE POLACRILEX 2 MG GUM BUC PRN (16:27)
[2019-05-28] MEDS ORDERED: LOPERAMIDE HCL 2 MG CAPSULE PO PRN (16:27)
[2019-05-28] MEDS ORDERED: IBUPROFEN 400 MG TABLET (FP) PO PRN (16:27)
[2019-05-28] MEDS ORDERED: guaiFENesin 200 MG/10 ML 10 ML UNIT-DOSE CUPS PO PRN (16:27)
[2019-05-28] MEDS ORDERED: MAGNESIUM CITRATE 300 ML BOTTLE PO PRN (16:27)
[2019-05-28] MEDS ORDERED: ACETAMINOPHEN 325 MG TABLET (FP) PO PRN (16:27)
[2019-05-28] MEDS ORDERED: MAGNESIUM HYDROX 2400MG/30ML ORAL SUSPENSION 30 ML CUP PO PRN (16:27)
[2019-05-28] MEDS ORDERED: MENTHOL/PHENOL 1 EACH UD MM PRN (16:27)
[2019-05-28] MEDS ORDERED: P-EPHED 60MG/TRIPROLIDI 2.5MG TABLET PO PRN (16:27)
[2019-05-28] MEDS ORDERED: MAG HYDROX/AL HYDROX/SIMETH 30 ML UNIT-DOSE CUP PO PRN (16:27)
[2019-05-28] MEDS ORDERED: hydrOXYzine PAMOATE 25 MG CAPSULE (FP) PO SCH (18:00)
--- NOTE | 2019-05-28 19:58 | PN ---
BHS Progress Note Note: c/o itching or arms and chest. Assess: Scratch jacobs on chest. Dry skin. No lesions. Plan: Vistaril 25 mg for itch or anxiety Encourage increased water intake Aveeno soap Eucerin cream.
[2019-05-28] MEDS ORDERED: MINERAL OIL/PETROLAT/WATER TOPICAL CREAM 113 GM JAR TP PRN (19:59)
[2019-05-28] MEDS ORDERED: COLLOIDAL OATMEAL 1 BAR EACH TP PRN (19:59)
[2019-05-28] MEDS ORDERED: hydrOXYzine PAMOATE 25 MG CAPSULE (FP) PO PRN ×2 (19:59→22:13)
[2019-05-28] MEDS: THIAMINE HCL 100 MG TABLET (FP) PO SCH (21:14)
[2019-05-28] MEDS: MELATONIN 5 MG TABLETS PO SCH (21:14)
[2019-05-29] MEDS: PRENATAL VITAMINS W/ FOLIC ACID TABLET (FP) PO SCH (10:45)
[2019-05-29] MEDS: NICOTINE 7 MG/24 HOURS TOPICAL PATCH TD SCH (10:45)
[2019-05-29] MEDS ORDERED: COLLOIDAL OATMEAL 1 BAR EACH TP PRN (15:47)
[2019-05-29] MEDS ORDERED: BENZOCAINE 28 GM HEMORRHOIDAL OINTMENT PR PRN (15:47)
[2019-05-29] MEDS: THIAMINE HCL 100 MG TABLET (FP) PO SCH (21:30)
[2019-05-29] MEDS: MELATONIN 5 MG TABLETS PO SCH (21:30)
[2019-05-29] MEDS: hydrOXYzine PAMOATE 25 MG CAPSULE (FP) PO PRN (21:35)
[2019-05-29] MEDS ORDERED: PT OWN MED DRAWER 7, Y5N ONE (21:35)
[2019-05-30 09:42] VITALS: BP 115/79; PULSE 86; TEMP 98.4
[2019-05-30] MEDS ORDERED: amLODIPine BESYLATE 5 MG TABLET (FP) PO SCH (10:00)
[2019-05-30] MEDS ORDERED: amLODIPine BESYLATE 10 MG TABLET (FP) PO SCH ×2 (10:00)
[2019-05-30] MEDS: PRENATAL VITAMINS W/ FOLIC ACID TABLET (FP) PO SCH (10:02)
[2019-05-30] MEDS: NICOTINE 7 MG/24 HOURS TOPICAL PATCH TD SCH (10:02)
[2019-05-30] MEDS: hydrOXYzine PAMOATE 25 MG CAPSULE (FP) PO PRN (10:04)
[2019-05-30] MEDS ORDERED: PT OWN MED DRAWER 7, Y5N ONE (10:16)
--- NOTE | 2019-05-30 17:37 | DS ---
[facility] Rehab Discharge Summary - [facility] Rehab Discharge Summary Admission Date: 05/28/19 Discharge Date: 06/01/19 - History Present History: Alcohol dependence, Cannabis dependence, Cocaine dependence Additional Comments: S/P DETOX ON 05/28/2019. TRANSFERRED TO REHAB FOR CONTINUATION OF CARE. CLIENT HAS DECIDED SHE WANTS TO ABORT TXMENT. CLIENT INITIALLY WANTED TO SIGN OUT AMA. SHE WAS GIVEN A REGULAR DC AFTER REVIEWING CLIENTS STAY. SHE COMPLETED DETOX SAFLEY WITH UNEVENTFUL STAY PAST 48 HOURS IN REHAB. CLIENT DOES NOT WANT TO SPEAK WITH PROVIDER. SHE IS A/O X3 NAD. VSS. - Discharge Physical Exam Vital Signs: Vital Signs Temperature 98.4 F 05/30/19 09:00 Pulse Rate 86 05/30/19 09:00 Respiratory Rate 19 05/30/19 09:00 Blood Pressure 115/79 05/30/19 09:00 O2 Sat by Pulse Oximetry (%) - Treatment Discharge Condition: Responded well - Medication Discharge Medications: Ambulatory Orders Amlodipine Besylate [Norvasc -] 10 mg PO DAILY 05/29/19 - Medication-Assisted Treatment (MAT) Medication-Assisted Treatment (MAT): No - Discharge Instructions Diet, activity, other medical instructions: Diet: Activity: Other medical instructions: - Diagnosis (1) Cannabis dependence, uncomplicated Status: Chronic (2) Cocaine dependence, uncomplicated Status: Chronic (3) Substance-induced anxiety disorder Status: Chronic (4) Substance-induced sleep disorder Status: Chronic (5) Depression Status: Chronic Qualifiers: Depression Type: unspecified Qualified Code(s): F32.9 - Major depressive disorder, single episode, unspecified (6) HTN (hypertension) Status: Chronic Qualifiers: Hypertension type: essential hypertension Qualified Code(s): I10 - Essential (primary) hypertension (7) Nicotine dependence Status: Chronic Qualifiers: Nicotine product type: cigarettes Substance use status: uncomplicated Qualified Code(s): F17.210 - Nicotine dependence, cigarettes, uncomplicated (8) Anemia Status: Chronic Qualifiers: Anemia type: unspecified type Qualified Code(s): D64.9 - Anemia, unspecified - Follow-up Referral Minutes to complete discharge: 30 - AMA Did Patient Leave Against Medical Advice: No
== END 2019-05-30 17:45 | disposition home or self-care (01) | DRG 772 ==
LOC: YASAS 16:15 → Y3E 16:16
PROVIDERS: ADMIT Allergy & Immunology; ATTEND Allergy & Immunology
PROC: HZ42ZZZ Group Counseling for Substance Abuse Treatment, Cognitive-Behavioral (ICD-10-PCS; principal; 2019-05-28)
DX: F10.20 Alcohol dependence, uncomplicated (principal); F14.20 Cocaine dependence, uncomplicated; F12.20 Cannabis dependence, uncomplicated; F17.210 Nicotine dependence, cigarettes, uncomplicated; F19.282 Other psychoactive substance dependence with psychoactive substance-induced sleep disorder; F19.280 Other psychoactive substance dependence with psychoactive substance-induced anxiety disorder; F32.9 Major depressive disorder, single episode, unspecified; I10 Essential (primary) hypertension; D64.9 Anemia, unspecified

== ENCOUNTER 2019-10-05 10:07 | Inpatient (IN) | payer OTHER ==
--- NOTE | 2019-10-05 09:29 | BHS.RME ---
Substance Use & Tx History - Substance Use History Alcohol Substance amount: sporadic use Frequency of use: Once a month Heroin Substance amount: 3 bags fentanyl Frequency of use: Daily Substance route: Inhalation (ex: sniffing or snorting), Injection (ex: intravenous or skin popping) Date of Last Use: 10/04/19 Cocaine-Crack Substance amount: $30-40 Frequency of use: Daily Substance route: Smoking Date of Last Use: 10/04/19 Marijuana/Hashish Substance amount: 1 blunt Frequency of use: Less than 3 times per week Substance route: Smoking Date of Last Use: 09/28/19 Physical/Psych/Mental Status - Behavior General Behavior: Increased activity (restlessness, agitation) Eye Contact: Normal - Cooperativeness Cooperativeness: Cooperative - Thinking Thought Processes: Tight, Logical, Goal Directed - Physical Health Problems Is patient presently having any pain?: No Does patient presently have any injuries (include location): No Does patient currently have a fever: No Is patient : No COWS - Scale Resting Pulse: 1= [place] 81-100 Sweatin=Flushed/Facial Moisture Restless Observation: 1= Difficult to Sit Still Pupil Size: 2= Moderately Dilated Bone or Joint Aches: 4=Acute Joint/Muscle Pain Runny Nose/ Eye Tearin= Runny Nose/Eyes GI Upset > 30mins: 1= Stomach Cramp Tremor Observation: 1= Tremor [place], Not Seen Yawning Observation: 1= 1-2x During Session Anxiety or Irritability: 1=Feels Anxious/Irritable Goose Flesh Skin: 3=Piloerection COWS Score: 19
--- NOTE | 2019-10-05 09:49 | HP ---
CIWA Score - Admission Criteria OASAS Guidelines: Admission for Medically Managed Detox: Requires at least one of the followin. CIWA greater than 12 2. Seizures within the past 24 hours 3. Delirium tremens within the past 24 hours 4. Hallucinations within the past 24 hours 5. Acute intervention needed for co occurring medical disorder 6. Acute intervention needed for co occurring psychiatric disorder 7. Severe withdrawal that cannot be handled at a lower level of care (continued vomiting, continued diarrhea, abnormal vital signs) requiring intravenous medication and/or fluids 8. Admitting History and Physical - Admission History of Present Illness: Ms. Corral is a 49 yo woman who presents to [facility] stating "I need to get clean". She was admitted to [facility] from 05/23-05/30/19 when she completed detox but only remained for 2 days of rehab, having aborted treatment early. Prior to that admission episode, she was last admitted here between Mar 03 and Mar 07 for detox. She then went to Rehab for 2 days, left AMA. She was at [facility] the night before being admitted to [facility] then. The records from [place] stated suicide attempt. The patient denied the suicide attempt. She now returns requesting detox and rehab once again after having been seen at [facility] brought in unresponsive. She overdosed twice just this week. PMH: HTN, Anemia, headaches PSH; C section ,cervical biopsy Psych: anxiety, multiple suicide attempts beginning as a teen: pills, slashed wrist, hanging Substance use history Heroin: 3 bags per day, IN and skin popped last night, first use age 47y. Overdose: last night. Had a narcan kit and most likely was used to revive her. Crack: $30.-40. per day, smoke, last use last night, first use age 18y EtoH: none since 2018, sporadic use. marijuana: once per month Nicotine: 10 cigs per day She is currently homeless and on the streets. History Source: Patient Limitations to Obtaining History: No Limitations - Past Medical History Cardiovascular: Yes: HTN ...LMP: 05/23/19 Heme/Onc: Yes: Anemia - Past Surgical History Past Surgical History: Yes: , Tubal Ligation - Smoking History Smoking history: Current every day smoker Have you smoked in the past 12 months: Yes Aproximately how many cigarettes per day: 10 - Alcohol/Substance Use Hx Alcohol Use: Yes Admission ROS [facility] Allergies/Adverse Reactions: Allergies Allergy/AdvReac Type Severity Reaction Status Date / Time No Known Allergies Allergy Verified 10/05/19 11:39 Exam Limitations: No Limitations - Ebola screening Have you traveled outside of the country in the last 21 days: No Have you had contact with anyone from an Ebola affected area: No Do you have a fever: No - Review of Systems Constitutional: Chills, Diaphoresis, Unintentional Wgt. Loss EENT: reports: No Symptoms Reported Respiratory: reports: No Symptoms reported Cardiac: reports: No Symptoms Reported GI: reports: No Symptoms Reported : reports: No Symptoms Reported Musculoskeletal: reports: No Symptoms Reported Integumentary: reports: No Symptoms Reported Neuro: reports: No Symptoms reported Endocrine: reports: No Symptoms Reported Hematology: reports: No Symptoms Reported Psychiatric: reports: Judgement Intact, Orientated x3, Agitated, Anxious Other Systems: Reviewed and Negative Patient History - Patient Medical History Hx Anemia: Yes (Not on medication) Hx Asthma: No Hx Chronic Obstructive Pulmonary Disease (COPD): No Hx Cancer: No Hx Cardiac Disorders: No Hx Congestive Heart Failure: No Hx Hypertension: Yes (ON MEDS) Hx Hypercholesterolemia: No Hx Pacemaker: No HX Cerebrovascular Accident: No Hx Seizures: No Hx Dementia: No Hx Diabetes: No Hx Gastrointestinal Disorders: No Hx Liver Disease: No Hx Genitourinary Disorders: No Hx Sexually Transmitted Disorders: Yes (CLAMYDIA) Hx Renal Disease (ESRD): No Hx Thyroid Disease: No Hx Human Immunodeficiency Virus (HIV): No (Negative 2018) Hx Hepatitis C: No Hx Depression: No Hx Suicide Attempt: Yes (X4) Hx Bipolar Disorder: No Hx Schizophrenia: No - Patient Surgical History Past Surgical History: No Hx Neurologic Surgery: No Hx Cataract Extraction: No Hx Cardiac Surgery: No Hx Lung Surgery: No Hx Breast Surgery: No Hx Breast Biopsy: No Hx Abdominal Surgery: No Hx Appendectomy: No Hx Cholecystectomy: No Hx Genitourinary Surgery: No Hx Section: Yes (x1) Hx Orthopedic Surgery: No Other Surgical History: cervical biopsy in 1995, tubal ligation -2001 Anesthesia Reaction: No - PPD History Date: 09/25/18 - Reproductive History Last Menstrual Period: 05/23/19 - Smoking Cessation Smoking history: Current every day smoker Have you smoked in the past 12 months: Yes Aproximately how many cigarettes per day: 10 Hx Chewing Tobacco Use: No Initiated information on smoking cessation: Yes 'Breaking Loose' booklet given: 10/05/19 - Substances abused Heroin Substance route: Inhalation Frequency: Daily Amount used: 3 bags Age of first use: 47 Date of last use: 10/04/19 Crack Substance route: Smoking Frequency: Daily Amount used: $30-40 Age of first use: 18 Date of last use: 10/04/19 Marijuana/Hashish Substance route: Smoking Frequency: 1-2 times per week Amount used: 1 Age of first use: 18 Date of last use: 09/28/19 Admission Physical Exam BHS - Physical General Appearance: Yes: Moderate Distress, Thin, Tremorous, Irritable, Sweating, Anxious HEENTM: Yes: EOMI, Hearing grossly Normal, Normal ENT Inspection, Normocephalic, Normal Voice, MARK, Pharynx Normal, Tm's normal Respiratory: Yes: Chest Non-Tender, Lungs Clear, Normal Breath Sounds, No Respiratory Distress, No Accessory Muscle Use Neck: Yes: No masses,lesions,Nodules, Supple, Trachea in good position Breast: Yes: Within Normal Limits Cardiology: Yes: Regular Rhythm, Regular Rate, S1, S2 Abdominal: Yes: Normal Bowel Sounds, Non Tender, Flat, Soft Back: Yes: Normal Inspection Musculoskeletal: Yes: full range of Motion, Gait Steady, Pelvis Stable Extremities: Yes: Normal Capillary Refill, Normal Inspection, Normal Range of Motion, Non-Tender Neurological: Yes: deicer kit assembler II-XII NML intact, Fully Oriented, Alert, Motor Strength 5/5, Normal Mood/Affect, Normal Response Integumentary: Yes: Normal Color, Dry, Warm Lymphatic: Yes: Within Normal Limits - Diagnostic (1) Cannabis dependence with withdrawal Current Visit: Yes Status: Acute (2) Anemia Current Visit: Yes Status: Chronic Qualifiers: Anemia type: unspecified type Qualified Code(s): D64.9 - Anemia, unspecified (3) Cocaine dependence, uncomplicated Current Visit: Yes Status: Chronic (4) Depression Current Visit: Yes Status: Chronic Qualifiers: Depression Type: unspecified Qualified Code(s): F32.9 - Major depressive disorder, single episode, unspecified (5) HTN (hypertension) Current Visit: Yes Status: Chronic Qualifiers: Hypertension type: essential hypertension Qualified Code(s): I10 - Essential (primary) hypertension Cleared for Admission S - Detox or Rehab [facility] Level of Care: Medically Managed Detox Regimen/Protocol: Methadone Claeared for Rehab Admission: No Screened but not Admitted - Documentation of Visit Screened but not Admitted: No Breathalyzer - Breathalyzer Breathalyzer: 0 Urine Drug Screen - Test Device Lot number: [id number] Expiration date: 10/25/20 - Control Is test valid?: Yes - Results Drug screen NEGATIVE: No Urine drug screen results: THC-Marijuana, STU-Cocaine, BZO-Benzodiazepines Inpatient Rehab Admission - Rehab Decision to Admit Inpatient rehab admission?: No
[2019-10-05 10:45] VITALS: BMI 19.0
[2019-10-05] MEDS ORDERED: METHADONE HCL 10 MG TABLET (FOR DETOX USE ONLY) PO ONE (12:03)
[2019-10-05] MEDS ORDERED: MENTHOL/PHENOL 1 EACH UD MM PRN (12:03)
[2019-10-05] MEDS ORDERED: MAG HYDROX/AL HYDROX/SIMETH 30 ML UNIT-DOSE CUP PO PRN (12:03)
[2019-10-05] MEDS ORDERED: METHOCARBAMOL 500 MG TABLET PO PRN (12:03)
[2019-10-05] MEDS ORDERED: MAGNESIUM CITRATE 300 ML BOTTLE PO PRN (12:03)
[2019-10-05] MEDS ORDERED: MAGNESIUM HYDROX 2400MG/30ML ORAL SUSPENSION 30 ML CUP PO PRN (12:03)
[2019-10-05] MEDS ORDERED: ACETAMINOPHEN 325 MG TABLET (FP) PO PRN ×2 (12:03)
[2019-10-05] MEDS ORDERED: cloNIDine HCL 0.1 MG TABLET PO PRN (12:03)
[2019-10-05] MEDS ORDERED: ONDANSETRON *ODT* 4 MG TABLET SL ONE (12:03)
[2019-10-05] MEDS ORDERED: BISMUTH SUBSALICYLATE 262 MG/15 ML BTL PO PRN (12:03)
[2019-10-05] MEDS: NICOTINE POLACRILEX 2 MG GUM BUC PRN ×2 (12:57→15:38)
[2019-10-05] MEDS: PRENATAL VITAMINS W/ FOLIC ACID TABLET (FP) PO SCH (12:57)
[2019-10-05] MEDS: NICOTINE 7 MG/24 HOURS TOPICAL PATCH TD SCH (12:57)
[2019-10-05] MEDS: hydrOXYzine PAMOATE 25 MG CAPSULE (FP) PO SCH ×3 (13:00→21:23)
--- NOTE | 2019-10-05 13:47 | CONSULT ---
[facility] Psychiatric Consult - Data Date of interview: 10/05/19 Admission source: Self-referred Identifying data: Ms Corral is a 48 years old Black female, mother of 6 children, unemployed receiving food stamp, living with her boyfriend seeking detox treatment for opioid, cocaine and cannabis Substance Abuse History: Reports history of heroin, crack cocaine and marijuana use. Refer to addiction counselor's summary for further information Medical History: Significant for hypertension, migraine headache, history of anemia, treatment for chlamydia and surgeries(cervical biopsy in 1995, in 2003, tubal ligation in 2001). Smokes 10 cigarettes daily Psychiatric History: Patient is known for five previous admissions to this facility. She reports that her first psychiatric contact occured couple of years ago when she was admitted to [facility] for suicidal attempt by overdose on pills and cutting herself. Claims that she was diagnosed with Anxiety Disorder and started on psychotropic medications. Reports two subsequent psychiatric hospitalizations at [facility] and another institution. Most recent admission was in 2018 at [facility]. Denies currently receiving outpatient psychiatric treatment nor taking medication. Claims that she used to [facility] [address] in the [place] 2 years ago and last took medication one year ago. During most recent admission to this facility late April 2019, she was prescribed only Vistaril 25 mg po Q 4hrs prn for anxiety. At present, reports feeling depressed, anxious and sleeping poorly Physical/Sexual Abuse/Trauma History: Denies history of abuse as a child or DV relationship as an adult Mental Status Exam - Mental Status Exam Alert and Oriented to: Time, Place, Person Cognitive Function: Fair Patient Appearance: Well Groomed Mood: Depressed, Anxious Affect: Appropriate Patient Behavior: Cooperative Speech Pattern: Clear Voice Loudness: Normal Thought Process: Intact, Goal Oriented Suicidal Ideation: Denies Homicidal Ideation: Denies Insight/Judgement: Poor Sleep: Poorly Appetite: Fair Muscle strength/Tone: Normal Gait/Station: Normal Psychiatric Findings - Problem List ([place] 1, 2,3) (1) Substance induced mood disorder Current Visit: Yes Status: Acute (2) Substance-induced anxiety disorder Current Visit: No Status: Acute (3) Substance-induced sleep disorder Current Visit: Yes Status: Acute (4) Opioid dependence with withdrawal Current Visit: No Status: Chronic (5) Cocaine dependence with withdrawal Current Visit: No Status: Acute (6) Cannabis dependence with withdrawal Current Visit: Yes Status: Acute (7) Nicotine dependence Current Visit: No Status: Chronic Qualifiers: Nicotine product type: cigarettes Substance use status: uncomplicated Qualified Code(s): F17.210 - Nicotine dependence, cigarettes, uncomplicated (8) Cocaine dependence, uncomplicated Current Visit: Yes Status: Chronic (9) HTN (hypertension) Current Visit: Yes Status: Chronic Qualifiers: Hypertension type: essential hypertension Qualified Code(s): I10 - Essential (primary) hypertension - Initial Treatment Plan Initial Treatment Plan: 1) Continue Vistaril 25 mg po Q 4hrs ordered by medical. 2) Continue inpatient detoxificatin
[2019-10-05 15:35] LABS: HEMATOCRIT 42.8 % (32.4-45.2); HEMOGLOBIN 13.9 GM/dL (10.7-15.3); MCH 31.6 pg (25.7-33.7); MCHC 32.5 g/dl (32.0-36.0); MEAN CELL VOLUME 97.3 fl (80-96); MEAN PLT VOLUME 9.2 fl (7.5-11.1); PLATELET COUNT 321 K/MM3 (134-434); RDW 13.2 % (11.6-15.6); WHITE BLOOD COUNT 10.8 K/mm3 (4.0-10.0)
[2019-10-05] MEDS: IBUPROFEN 400 MG TABLET (FP) PO PRN (15:37)
[2019-10-05 15:58] LABS: ALBUMIN 3.4 g/dl (3.4-5.0); BLOOD UREA NITROGEN 15.1 mg/dL (7-18); CALCIUM 9.1 mg/dL (8.5-10.1); CREATININE 0.8 mg/dL (0.55-1.3); POTASSIUM 4.1 mmol/L (3.5-5.1)
[2019-10-05 15:59] LABS: BILIRUBIN,TOTAL 0.4 mg/dL (0.2-1); TOT PROT 7.1 g/dl (6.4-8.2)
[2019-10-05] MEDS: THIAMINE HCL 100 MG TABLET (FP) PO SCH (21:23)
[2019-10-05] MEDS: MELATONIN 5 MG TABLETS PO SCH (21:23)
[2019-10-06] MEDS: hydrOXYzine PAMOATE 25 MG CAPSULE (FP) PO SCH ×4 (06:23→17:58)
[2019-10-06] MEDS ORDERED: METHADONE HCL 10 MG TABLET (FOR DETOX USE ONLY) ONE (09:29)
[2019-10-06] MEDS ORDERED: METHADONE HCL 5 MG TABLET (FOR DETOX USE ONLY) ONE (09:30)
[2019-10-06] MEDS ORDERED: METHADONE (DETOX) 20 MG, METHADONE (DETOX) 5 MG PO ONE (10:00)
[2019-10-06] MEDS: NICOTINE 7 MG/24 HOURS TOPICAL PATCH TD SCH (10:46)
[2019-10-06] MEDS: PRENATAL VITAMINS W/ FOLIC ACID TABLET (FP) PO SCH (10:46)
[2019-10-06] MEDS: IBUPROFEN 400 MG TABLET (FP) PO PRN (10:47)
--- NOTE | 2019-10-06 11:47 | PN ---
S COWS - Scale Resting Pulse: 0= ND 80 or Below Sweatin= Beads of Sweat on Face Restless Observation: 3= Extraneous Movement Pupil Size: 0= Normal to Room Light Bone or Joint Aches: 2= Severe Diffuse Aches Runny Nose/ Eye Tearin= None GI Upset > 30mins: 0= None Tremor Observation of Outstretched Hands: 0= None Yawning Observation: 1= 1-2x During Session Anxiety or Irritability: 2=Irritable/Anxious Goose Flesh Skin: 0=Smooth Skin COWS Score: 11 S Progress Note (SOAP) Subjective: c/o tiredness, muscle aches, anxiety, and sweats. Objective: 10/06/19 11:46 Vital Signs 10/06/19 10/06/19 07:06 08:59 Temperature 98.1 F 97.8 F Pulse Rate 61 65 Respiratory 18 16 Rate Blood Pressure 133/79 124/79 O2 Sat by Pulse 96 98 Oximetry (%) Laboratory Last Values WBC 10.8 K/mm3 (4.0-10.0) H 10/05/19 12:00 RBC 4.40 M/mm3 (3.60-5.2) 10/05/19 12:00 Hgb 13.9 GM/dL (10.7-15.3) 10/05/19 12:00 Hct 42.8 % (32.4-45.2) 10/05/19 12:00 MCV 97.3 fl (80-96) H 10/05/19 12:00 MCH 31.6 pg (25.7-33.7) 10/05/19 12:00 MCHC 32.5 g/dl (32.0-36.0) 10/05/19 12:00 RDW 13.2 % (11.6-15.6) D 10/05/19 12:00 Plt Count 321 K/MM3 (134-434) 10/05/19 12:00 MPV 9.2 fl (7.5-11.1) 10/05/19 12:00 Sodium 138 mmol/L (136-145) 10/05/19 12:00 Potassium 4.1 mmol/L (3.5-5.1) 10/05/19 12:00 Chloride 104 mmol/L (98-107) 10/05/19 12:00 Carbon Dioxide 27 mmol/L (21-32) 10/05/19 12:00 Anion Gap 7 MMOL/L (8-16) L 10/05/19 12:00 BUN 15.1 mg/dL (7-18) 10/05/19 12:00 Creatinine 0.8 mg/dL (0.55-1.3) 10/05/19 12:00 Est GFR (CKD-EPI)AfAm 101.75 10/05/19 12:00 Est GFR (CKD-EPI)NonAf 87.79 10/05/19 12:00 Random Glucose 116 mg/dL (74-106) H 10/05/19 12:00 Calcium 9.1 mg/dL (8.5-10.1) 10/05/19 12:00 Total Bilirubin 0.4 mg/dL (0.2-1) 10/05/19 12:00 AST 82 U/L (15-37) H 10/05/19 12:00 ALT 69 U/L (13-61) H 10/05/19 12:00 Alkaline Phosphatase 100 U/L (45-117) 10/05/19 12:00 Total Protein 7.1 g/dl (6.4-8.2) 10/05/19 12:00 Albumin 3.4 g/dl (3.4-5.0) 10/05/19 12:00 Syphilis Serology Reactive (NONREACTIVE) A* 10/05/19 12:00 RPR Titer Reactive 1:1 (NONREACTIVE) H D 10/05/19 12:00 Labs noted with RPR of 1:1 Assessment: 10/06/19 11:47 AOx 3, in no acute respiratory distress. Full ROM, ambulating in the unit. Withdrawal symptoms. RPR 1:1, pt states she can't recall atif syphillis before. Denies any oral or perennial lesions or unsafe sex. Agrees to take pcn G and continue treatment after D/C. Pt is encouraged to follow-up for the 2 remaining tx after discharge which she verbalized understanding. 10/06/19 15:41 10/06/19 15:45 Plan: continue detox. Penicillin 2.4millions units IM x1 dose.
[2019-10-06] MEDS: NICOTINE POLACRILEX 2 MG GUM BUC PRN ×2 (12:49→17:24)
[2019-10-06] MEDS ORDERED: PENICILLIN G BENZATHINE 2,400,000 UNIT/4 ML PFS IM ONE (15:44)
[2019-10-06] MEDS: MELATONIN 5 MG TABLETS PO SCH (23:32)
[2019-10-06] MEDS: THIAMINE HCL 100 MG TABLET (FP) PO SCH (23:32)
[2019-10-06] MEDS: hydrOXYzine PAMOATE 25 MG CAPSULE (FP) PO PRN (23:32)
[2019-10-07] MEDS: IBUPROFEN 400 MG TABLET (FP) PO PRN (02:10)
[2019-10-07] MEDS ORDERED: METHADONE HCL 10 MG TABLET (FOR DETOX USE ONLY) PO ONE (10:00)
[2019-10-07] MEDS: NICOTINE 7 MG/24 HOURS TOPICAL PATCH TD SCH (10:36)
[2019-10-07] MEDS: PRENATAL VITAMINS W/ FOLIC ACID TABLET (FP) PO SCH (10:36)
[2019-10-07] MEDS: hydrOXYzine PAMOATE 25 MG CAPSULE (FP) PO PRN ×2 (10:37→22:22)
[2019-10-07] MEDS: NICOTINE POLACRILEX 2 MG GUM BUC PRN (10:38)
--- NOTE | 2019-10-07 11:29 | EKG ---
Test Reason : Blood Pressure : / mmHG Vent. Rate : 055 BPM Atrial Rate : 055 BPM P-R Int : 146 ms QRS Dur : 076 ms QT Int : 426 ms P-R-T Axes : 067 055 055 degrees QTc Int : 407 ms SINUS BRADYCARDIA POSSIBLE LEFT ATRIAL ENLARGEMENT NONSPECIFIC T WAVE ABNORMALITY ABNORMAL ECG WHEN COMPARED WITH ECG OF 25-SEP-2018 16:58, NO SIGNIFICANT CHANGE WAS FOUND Confirmed by SHIRLEY FRANCO, REX ([id number]) on 10/07/2019 11:29:33 AM Referred By: GOKUL Confirmed By:REX WATSON MD
--- NOTE | 2019-10-07 12:28 | PN ---
BHS COWS - Scale Resting Pulse: 0= [place] 80 or Below Sweatin= Chills/Flushing Restless Observation: 0= Sits Still Pupil Size: 0= Normal to Room Light Bone or Joint Aches: 0= None Runny Nose/ Eye Tearin= Runny Nose/Eyes GI Upset > 30mins: 2= Nausea/Diarrhea Tremor Observation of Outstretched Hands: 2= Slight Tremor Visible Yawning Observation: 0= None Anxiety or Irritability: 2=Irritable/Anxious Goose Flesh Skin: 0=Smooth Skin COWS Score: 9 BHS Progress Note (SOAP) Subjective: Feels tired, nausea Objective: 10/07/19 12:23 Last Vital Signs Temp Pulse Resp BP Pulse Ox 98.4 F 61 18 133/76 98 10/07/19 09:30 10/07/19 09:30 10/07/19 09:30 10/07/19 09:30 10/07/19 05:00 Elevated b/p: has htn, on clonidine prn Laboratory Tests 10/05/19 10/05/19 10/05/19 12:00 12:00 12:00 WBC 10.8 H RBC 4.40 Hgb 13.9 Hct 42.8 MCV 97.3 H MCH 31.6 MCHC 32.5 RDW 13.2 D Plt Count 321 MPV 9.2 Sodium 138 Potassium 4.1 Chloride 104 Carbon Dioxide 27 Anion Gap 7 L BUN 15.1 Creatinine 0.8 Est GFR (CKD-EPI)AfAm 101.75 Est GFR (CKD-EPI)NonAf 87.79 Random Glucose 116 H Calcium 9.1 Total Bilirubin 0.4 AST 82 H ALT 69 H Alkaline Phosphatase 100 Total Protein 7.1 Albumin 3.4 Syphilis Serology Reactive A* RPR Titer COVID-19 ([facility]) 10/05/19 10/05/19 12:00 14:00 WBC RBC Hgb Hct MCV MCH MCHC RDW Plt Count MPV Sodium Potassium Chloride Carbon Dioxide Anion Gap BUN Creatinine Est GFR (CKD-EPI)AfAm Est GFR (CKD-EPI)NonAf Random Glucose Calcium Total Bilirubin AST ALT Alkaline Phosphatase Total Protein Albumin Syphilis Serology RPR Titer Reactive 1:1 H D COVID-19 ([facility]) Not detected Labs reviewed: RPR titer reactive 1:1, treatment already initiated with PCN G Benzathine; serum glucose 116 (high), AST 82/ALT 69 (high) Assessment: 10/07/19 12:29 Withdrawal sxs Noted with HTN, Hyperglycemia (mild) elevated LFTs (mild) Plan: Continue detox Encouraged PO water intake HTN: on prn clonidine for withdrawal which should help b/p, follow up with PCP post discharge for management Hyperglycemia (mild): send fasting glucose and A1c to r/o impaired glucose and DM Elevated LFTs (mild): could be r/t drug use, repeat AST/ALT
[2019-10-07] MEDS: MELATONIN 5 MG TABLETS PO SCH (22:21)
[2019-10-07] MEDS: THIAMINE HCL 100 MG TABLET (FP) PO SCH (22:21)
[2019-10-08] MEDS ORDERED: METHADONE (DETOX) 10 MG, METHADONE (DETOX) 5 MG PO ONE (10:00)
--- NOTE | 2019-10-08 10:00 | PN ---
[facility] COWS - Scale Resting Pulse: 0= [place] 80 or Below Sweatin= No chills or Flushing Restless Observation: 0= Sits Still Pupil Size: 0= Normal to Room Light Bone or Joint Aches: 1= Mild Discomfort Runny Nose/ Eye Tearin= Nasal Congestion GI Upset > 30mins: 1= Stomach Cramp Tremor Observation of Outstretched Hands: 2= Slight Tremor Visible Yawning Observation: 0= None Anxiety or Irritability: 2=Irritable/Anxious Goose Flesh Skin: 0=Smooth Skin COWS Score: 7 BHS Progress Note (SOAP) Subjective: alert,irritable,anxious,interrupted sleep,pain in the body and back Objective: 10/08/19 10:06 Vital Signs Temperature 97.1 F L 10/08/19 06:38 Pulse Rate 64 10/08/19 06:38 Respiratory Rate 16 10/08/19 06:38 Blood Pressure 113/70 10/08/19 06:38 O2 Sat by Pulse Oximetry (%) 98 10/08/19 06:38 10/08/19 10:06 Laboratory Last Values WBC 10.8 K/mm3 (4.0-10.0) H 10/05/19 12:00 RBC 4.40 M/mm3 (3.60-5.2) 10/05/19 12:00 Hgb 13.9 GM/dL (10.7-15.3) 10/05/19 12:00 Hct 42.8 % (32.4-45.2) 10/05/19 12:00 MCV 97.3 fl (80-96) H 10/05/19 12:00 MCH 31.6 pg (25.7-33.7) 10/05/19 12:00 MCHC 32.5 g/dl (32.0-36.0) 10/05/19 12:00 RDW 13.2 % (11.6-15.6) D 10/05/19 12:00 Plt Count 321 K/MM3 (134-434) 10/05/19 12:00 MPV 9.2 fl (7.5-11.1) 10/05/19 12:00 Sodium 138 mmol/L (136-145) 10/05/19 12:00 Potassium 4.1 mmol/L (3.5-5.1) 10/05/19 12:00 Chloride 104 mmol/L (98-107) 10/05/19 12:00 Carbon Dioxide 27 mmol/L (21-32) 10/05/19 12:00 Anion Gap 7 MMOL/L (8-16) L 10/05/19 12:00 BUN 15.1 mg/dL (7-18) 10/05/19 12:00 Creatinine 0.8 mg/dL (0.55-1.3) 10/05/19 12:00 Est GFR (CKD-EPI)AfAm 101.75 10/05/19 12:00 Est GFR (CKD-EPI)NonAf 87.79 10/05/19 12:00 Random Glucose 116 mg/dL (74-106) H 10/05/19 12:00 Calcium 9.1 mg/dL (8.5-10.1) 10/05/19 12:00 Total Bilirubin 0.4 mg/dL (0.2-1) 10/05/19 12:00 AST 82 U/L (15-37) H 10/05/19 12:00 ALT 69 U/L (13-61) H 10/05/19 12:00 Alkaline Phosphatase 100 U/L (45-117) 10/05/19 12:00 Total Protein 7.1 g/dl (6.4-8.2) 10/05/19 12:00 Albumin 3.4 g/dl (3.4-5.0) 10/05/19 12:00 POC Urine HCG, Qual Negative 10/05/19 10:49 Syphilis Serology Reactive (NONREACTIVE) A* 10/05/19 12:00 RPR Titer Reactive 1:1 (NONREACTIVE) H D 10/05/19 12:00 COVID-19 ([facility]) Not detected (Not Detected) 10/05/19 14:00 patient never been treated for syphilis before received bicillin 2.4 million units im on 10/06/2019 need 2 more injection on 10/13/2019 and 10/20 2019 patient understood 10/08/19 10:08 Assessment: 10/08/19 10:11 withdrawal symptom Plan: continue detox methadone regimen ,encourage oral fluid,repeat cbc in am,patient has been ambulating with cane
[2019-10-08] MEDS: PRENATAL VITAMINS W/ FOLIC ACID TABLET (FP) PO SCH (10:49)
[2019-10-08] MEDS: NICOTINE 7 MG/24 HOURS TOPICAL PATCH TD SCH (10:49)
[2019-10-08] MEDS: NICOTINE POLACRILEX 2 MG GUM BUC PRN ×3 (10:49→17:41)
[2019-10-08] MEDS: hydrOXYzine PAMOATE 25 MG CAPSULE (FP) PO PRN ×2 (10:50→22:01)
[2019-10-08] MEDS ORDERED: METHADONE HCL 5 MG TABLET (FOR DETOX USE ONLY) ONE (10:51)
[2019-10-08] MEDS ORDERED: METHADONE HCL 10 MG TABLET (FOR DETOX USE ONLY) ONE (10:51)
[2019-10-08] MEDS: THIAMINE HCL 100 MG TABLET (FP) PO SCH (22:01)
[2019-10-08] MEDS: MELATONIN 5 MG TABLETS PO SCH (22:01)
[2019-10-09] MEDS ORDERED: METHADONE HCL 10 MG TABLET (FOR DETOX USE ONLY) PO ONE (10:00)
[2019-10-09] MEDS: NICOTINE 7 MG/24 HOURS TOPICAL PATCH TD SCH (10:38)
[2019-10-09] MEDS: PRENATAL VITAMINS W/ FOLIC ACID TABLET (FP) PO SCH (10:38)
[2019-10-09] MEDS: NICOTINE POLACRILEX 2 MG GUM BUC PRN ×2 (10:39→14:52)
[2019-10-09 11:48] LABS: BASO % 0.9 % (0-2.0); EOS % 2.3 % (0-4.5); HEMATOCRIT 39.9 % (32.4-45.2); HEMOGLOBIN 13.2 GM/dL (10.7-15.3); LYMPH % 26.4 % (8-40); MCH 31.5 pg (25.7-33.7); MEAN CELL VOLUME 95.5 fl (80-96); MEAN PLT VOLUME 9.4 fl (7.5-11.1); MONO % 14.3 % (3.8-10.2); NEUT % 56.1 % (42.8-82.8); PLATELET COUNT 269 K/MM3 (134-434); RBC 4.18 M/mm3 (3.60-5.2); RDW 13.4 % (11.6-15.6); WHITE BLOOD COUNT 8.7 K/mm3 (4.0-10.0)
--- NOTE | 2019-10-09 13:23 | PN ---
[facility] COWS - Scale Resting Pulse: 0= [place] 80 or Below Sweatin=Flushed/Facial Moisture Restless Observation: 0= Sits Still Pupil Size: 0= Normal to Room Light Bone or Joint Aches: 1= Mild Discomfort Runny Nose/ Eye Tearin= Nasal Congestion GI Upset > 30mins: 2= Nausea/Diarrhea Tremor Observation of Outstretched Hands: 1= Tremor [place], Not Seen Yawning Observation: 4= Several Times/Minute Anxiety or Irritability: 0= None (Patient reports insomnia and nightmares.) Goose Flesh Skin: 0=Smooth Skin COWS Score: 11 S Progress Note (SOAP) Subjective: patient found lying in bed. COWS score was 11, but also reports feeling itchy all over. Reports insomnia and nightmares. Objective: Physical General Appearance: Found resting in bed, moderately anxious. HEENTM:Normocephalic, Normal Voice, Respiratory:No Respiratory Distress, No Accessory Muscle Use Neck: Supple, Musculoskeletal: full range of Motion, Neurological: Fully Oriented, Alert, Normal Response 10/09/19 13:24 Assessment: withdrawal from heroin and cocaine (crack) 10/09/19 13:26 Vital Signs Period Temp Pulse Resp BP Sys/Quick Pulse Ox Last 24 Hr 97.5 F-98.4 F 55-73 16-18 113-137/66-83 96-98 10/09/19 13:27 Laboratory Last Values WBC 8.7 K/mm3 (4.0-10.0) 10/09/19 08:15 RBC 4.18 M/mm3 (3.60-5.2) 10/09/19 08:15 Hgb 13.2 GM/dL (10.7-15.3) 10/09/19 08:15 Hct 39.9 % (32.4-45.2) 10/09/19 08:15 MCV 95.5 fl (80-96) 10/09/19 08:15 MCH 31.5 pg (25.7-33.7) 10/09/19 08:15 MCHC 33.0 g/dl (32.0-36.0) 10/09/19 08:15 RDW 13.4 % (11.6-15.6) 10/09/19 08:15 Plt Count 269 K/MM3 (134-434) 10/09/19 08:15 MPV 9.4 fl (7.5-11.1) 10/09/19 08:15 Absolute Neuts (auto) 4.9 K/mm3 (1.5-8.0) 10/09/19 08:15 Neutrophils % 56.1 % (42.8-82.8) D 10/09/19 08:15 Lymphocytes % 26.4 % (8-40) D 10/09/19 08:15 Monocytes % 14.3 % (3.8-10.2) H D 10/09/19 08:15 Eosinophils % 2.3 % (0-4.5) 10/09/19 08:15 Basophils % 0.9 % (0-2.0) 10/09/19 08:15 Nucleated RBC % 0 % (0-0) 10/09/19 08:15 Sodium 138 mmol/L (136-145) 10/05/19 12:00 Potassium 4.1 mmol/L (3.5-5.1) 10/05/19 12:00 Chloride 104 mmol/L (98-107) 10/05/19 12:00 Carbon Dioxide 27 mmol/L (21-32) 10/05/19 12:00 Anion Gap 7 MMOL/L (8-16) L 10/05/19 12:00 BUN 15.1 mg/dL (7-18) 10/05/19 12:00 Creatinine 0.8 mg/dL (0.55-1.3) 10/05/19 12:00 Est GFR (CKD-EPI)AfAm 101.75 10/05/19 12:00 Est GFR (CKD-EPI)NonAf 87.79 10/05/19 12:00 Random Glucose 116 mg/dL (74-106) H 10/05/19 12:00 Calcium 9.1 mg/dL (8.5-10.1) 10/05/19 12:00 Total Bilirubin 0.4 mg/dL (0.2-1) 10/05/19 12:00 AST 82 U/L (15-37) H 10/05/19 12:00 ALT 69 U/L (13-61) H 10/05/19 12:00 Alkaline Phosphatase 100 U/L (45-117) 10/05/19 12:00 Total Protein 7.1 g/dl (6.4-8.2) 10/05/19 12:00 Albumin 3.4 g/dl (3.4-5.0) 10/05/19 12:00 POC Urine HCG, Qual Negative 10/05/19 10:49 Syphilis Serology Reactive (NONREACTIVE) A* 10/05/19 12:00 RPR Titer Reactive 1:1 (NONREACTIVE) H D 10/05/19 12:00 COVID-19 ([facility]) Not detected (Not Detected) 10/05/19 14:00 Covid 19 not detected. Plan: Continue detox Encourage hydration Encourage nutrition Encourage sleep medication at bedtime
[2019-10-09] MEDS: hydrOXYzine PAMOATE 25 MG CAPSULE (FP) PO PRN (21:21)
[2019-10-09] MEDS: THIAMINE HCL 100 MG TABLET (FP) PO SCH (21:21)
[2019-10-09] MEDS: MELATONIN 5 MG TABLETS PO SCH (21:21)
[2019-10-10] MEDS ORDERED: METHADONE HCL 5 MG TABLET (FOR DETOX USE ONLY) PO ONE (06:00)
[2019-10-10 06:46] VITALS: BP 112/62; PULSE 63; TEMP 98
[2019-10-10] MEDS: NICOTINE POLACRILEX 2 MG GUM BUC PRN (06:56)
--- NOTE | 2019-10-13 20:05 | DS ---
[facility] Detox Discharge Summary Admission Date: 10/05/19 Discharge Date: 10/10/19 - History Present History: Cannabis Dependence, Cocaine Dependence, Opioid Dependence Additional Comments: Pt discharged earlier this morning during the previous shift. This senior writer did not encounter pt before discharging. Pertinent Past History: PMH: HTN, Anemia, headaches PSH; C section , Tubal Ligation, cervical biopsy Psych: anxiety/Depression - Physical Exam Results Vital Signs: Vital Signs Temperature 98.0 F 10/10/19 06:21 Pulse Rate 63 10/10/19 06:21 Respiratory Rate 17 10/10/19 06:21 Blood Pressure 112/62 10/10/19 06:21 O2 Sat by Pulse Oximetry (%) 96 10/10/19 06:21 Pertinent Admission Physical Exam Findings: Laboratory Tests 10/05/19 10/05/19 10/05/19 10:49 12:00 12:00 WBC 10.8 H RBC 4.40 Hgb 13.9 Hct 42.8 MCV 97.3 H MCH 31.6 MCHC 32.5 RDW 13.2 D Plt Count 321 MPV 9.2 Absolute Neuts (auto) Neutrophils % Lymphocytes % Monocytes % Eosinophils % Basophils % Nucleated RBC % Sodium 138 Potassium 4.1 Chloride 104 Carbon Dioxide 27 Anion Gap 7 L BUN 15.1 Creatinine 0.8 Est GFR (CKD-EPI)AfAm 101.75 Est GFR (CKD-EPI)NonAf 87.79 Random Glucose 116 H Calcium 9.1 Total Bilirubin 0.4 AST 82 H ALT 69 H Alkaline Phosphatase 100 Total Protein 7.1 Albumin 3.4 POC Urine HCG, Qual Negative Syphilis Serology RPR Titer COVID-19 ([facility]) 10/05/19 10/05/19 10/05/19 12:00 12:00 14:00 WBC RBC Hgb Hct MCV MCH MCHC RDW Plt Count MPV Absolute Neuts (auto) Neutrophils % Lymphocytes % Monocytes % Eosinophils % Basophils % Nucleated RBC % Sodium Potassium Chloride Carbon Dioxide Anion Gap BUN Creatinine Est GFR (CKD-EPI)AfAm Est GFR (CKD-EPI)NonAf Random Glucose Calcium Total Bilirubin AST ALT Alkaline Phosphatase Total Protein Albumin POC Urine HCG, Qual Syphilis Serology Reactive A* RPR Titer Reactive 1:1 H D COVID-19 ([facility]) Not detected 10/09/19 08:15 WBC 8.7 RBC 4.18 Hgb 13.2 Hct 39.9 MCV 95.5 MCH 31.5 MCHC 33.0 RDW 13.4 Plt Count 269 MPV 9.4 Absolute Neuts (auto) 4.9 Neutrophils % 56.1 D Lymphocytes % 26.4 D Monocytes % 14.3 H D Eosinophils % 2.3 Basophils % 0.9 Nucleated RBC % 0 Sodium Potassium Chloride Carbon Dioxide Anion Gap BUN Creatinine Est GFR (CKD-EPI)AfAm Est GFR (CKD-EPI)NonAf Random Glucose Calcium Total Bilirubin AST ALT Alkaline Phosphatase Total Protein Albumin POC Urine HCG, Qual Syphilis Serology RPR Titer COVID-19 ([facility]) - Treatment Hospital Course: Detox Protocol Followed, Detoxed Safely, Responded well, Rehab Referral Accepted Patient has Accepted a Rehab Referral to: [facility] - Medication Discharge Medications: Ambulatory Orders NK [No Known Home Medication] 10/05/19 - Diagnosis (1) Anxiety Status: Chronic (2) Cannabis dependence with withdrawal Status: Acute (3) Cocaine dependence with withdrawal Status: Acute (4) Anemia Status: Chronic Qualifiers: Anemia type: unspecified type Qualified Code(s): D64.9 - Anemia, unspecified (5) Depression Status: Chronic Qualifiers: Depression Type: unspecified Qualified Code(s): F32.9 - Major depressive disorder, single episode, unspecified (6) HTN (hypertension) Status: Chronic Qualifiers: Hypertension type: essential hypertension Qualified Code(s): I10 - Essential (primary) hypertension (7) Nicotine dependence Status: Acute Qualifiers: Nicotine product type: cigarettes Substance use status: in withdrawal Qualified Code(s): F17.213 - Nicotine dependence, cigarettes, with withdrawal (8) Opioid dependence with withdrawal Status: Acute - AMA Did Patient Leave Against Medical Advice: No
== END 2019-10-10 07:38 | disposition home or self-care (01) | DRG 773 ==
LOC: YASAS 10:07 → Y5N DETOX 11:39
PROVIDERS: ADMIT Allergy & Immunology; ATTEND Allergy & Immunology
PROC: HZ2ZZZZ Detoxification Services for Substance Abuse Treatment (ICD-10-PCS; principal; 2019-10-05)
DX: F11.23 Opioid dependence with withdrawal (principal); F14.20 Cocaine dependence, uncomplicated; Z59.0 Homelessness; F12.10 Cannabis abuse, uncomplicated; F17.210 Nicotine dependence, cigarettes, uncomplicated; F32.9 Major depressive disorder, single episode, unspecified; F19.280 Other psychoactive substance dependence with psychoactive substance-induced anxiety disorder; F19.24 Other psychoactive substance dependence with psychoactive substance-induced mood disorder; F19.282 Other psychoactive substance dependence with psychoactive substance-induced sleep disorder; I10 Essential (primary) hypertension; R73.9 Hyperglycemia, unspecified; R94.5 Abnormal results of liver function studies; R76.8 Other specified abnormal immunological findings in serum; Z86.2 Personal history of diseases of the blood and blood-forming organs and certain disorders involving the immune mechanism; Z86.19 Personal history of other infectious and parasitic diseases
CPT/HCPCS: 36415; 73560-TC-RT-FY; 80053; 81025; 85025; 85027; 86593; 86780; 93005; 93010; J0735; U0003

== ENCOUNTER 2020-02-05 15:00 | Inpatient (IN) | payer OTHER ==
[2020-02-05] MEDS ORDERED: BISMUTH SUBSALICYLATE 524 MG/30 ML UD PO PRN (16:25)
[2020-02-05] MEDS ORDERED: MAGNESIUM CITRATE 300 ML BOTTLE PO PRN (16:25)
[2020-02-05] MEDS ORDERED: METHOCARBAMOL 500 MG TABLET PO PRN (16:25)
[2020-02-05] MEDS ORDERED: ACETAMINOPHEN 325 MG TABLET (FP) PO PRN (16:25)
[2020-02-05] MEDS ORDERED: cloNIDine HCL 0.1 MG TABLET PO PRN (16:25)
[2020-02-05] MEDS ORDERED: ONDANSETRON *ODT* 4 MG TABLET SL PRN (16:25)
[2020-02-05] MEDS ORDERED: MAGNESIUM HYDROX 2400MG/30ML ORAL SUSPENSION 30 ML CUP PO PRN (16:25)
[2020-02-05] MEDS ORDERED: MENTHOL/PHENOL 1 EACH UD MM PRN (16:25)
[2020-02-05] MEDS ORDERED: diazePAM 5 MG TABLET PO PRN (16:25)
[2020-02-05] MEDS ORDERED: MAG HYDROX/AL HYDROX/SIMETH 30 ML UNIT-DOSE CUP PO PRN (16:25)
[2020-02-05] MEDS ORDERED: IBUPROFEN 400 MG TABLET (FP) PO PRN (16:25)
[2020-02-05 17:10] VITALS: BMI 16.9
[2020-02-05] MEDS ORDERED: METHADONE HCL 10 MG TABLET (FOR DETOX USE ONLY) PO ONE (17:30)
[2020-02-05] MEDS: diazePAM 5 MG TABLET PO SCH ×2 (18:04→23:00)
[2020-02-05] MEDS: hydrOXYzine PAMOATE 25 MG CAPSULE (FP) PO SCH ×2 (18:04→22:59)
[2020-02-05] MEDS: MELATONIN 5 MG TABLETS PO SCH (22:59)
[2020-02-05] MEDS: THIAMINE HCL 100 MG TABLET (FP) PO SCH (22:59)
[2020-02-06] MEDS: diazePAM 5 MG TABLET PO SCH ×4 (05:19→22:07)
[2020-02-06] MEDS: hydrOXYzine PAMOATE 25 MG CAPSULE (FP) PO SCH ×5 (05:19→22:07)
[2020-02-06] MEDS ORDERED: METHADONE HCL 5 MG TABLET (FOR DETOX USE ONLY) ONE (09:41)
[2020-02-06] MEDS ORDERED: METHADONE HCL 10 MG TABLET (FOR DETOX USE ONLY) ONE (09:42)
[2020-02-06] MEDS ORDERED: METHADONE (DETOX) 20 MG, METHADONE (DETOX) 5 MG PO ONE (10:00)
[2020-02-06 10:02] LABS: HEMATOCRIT 37.4 % (32.4-45.2); HEMOGLOBIN 12.1 GM/dL (10.7-15.3); MCH 30.3 pg (25.7-33.7); MCHC 32.2 g/dl (32.0-36.0); MEAN CELL VOLUME 94.2 fl (80-96); MEAN PLT VOLUME 8.8 fl (7.5-11.1); PLATELET COUNT 278 K/MM3 (134-434); RBC 3.97 M/mm3 (3.60-5.2); RDW 13.9 % (11.6-15.6); WHITE BLOOD COUNT 8.9 K/mm3 (4.0-10.0)
[2020-02-06 10:14] LABS: ALBUMIN 2.6 g/dl (3.4-5.0); BLOOD UREA NITROGEN 14.7 mg/dL (7-18); CALCIUM 8.5 mg/dL (8.5-10.1)
[2020-02-06 10:17] LABS: CREATININE 0.7 mg/dL (0.55-1.3)
[2020-02-06 10:19] LABS: BILIRUBIN,TOTAL 0.6 mg/dL (0.2-1); TOT PROT 5.8 g/dl (6.4-8.2)
[2020-02-06] MEDS: LISINOPRIL 10 MG TABLET PO SCH (10:52)
[2020-02-06] MEDS: PRENATAL VITAMINS W/ FOLIC ACID TABLET (FP) PO SCH (10:53)
[2020-02-06] MEDS: NICOTINE 14 MG/24 HOURS TOPICAL PATCH TD SCH (10:53)
[2020-02-06] MEDS: NICOTINE POLACRILEX 2 MG GUM BUC PRN (10:53)
[2020-02-06] MEDS: ACETAMINOPHEN 325 MG TABLET (FP) PO PRN (10:54)
[2020-02-06 11:16] LABS: HIV INTERPRETATION NEGATIVE (NEGATIVE)
[2020-02-06] MEDS: MELATONIN 5 MG TABLETS PO SCH (22:07)
[2020-02-06] MEDS: THIAMINE HCL 100 MG TABLET (FP) PO SCH (22:07)
[2020-02-07] MEDS: diazePAM 5 MG TABLET PO SCH ×3 (06:13→22:42)
[2020-02-07] MEDS: hydrOXYzine PAMOATE 25 MG CAPSULE (FP) PO SCH (06:13)
[2020-02-07] MEDS ORDERED: METHADONE HCL 10 MG TABLET (FOR DETOX USE ONLY) PO ONE (10:00)
[2020-02-07] MEDS: NICOTINE 14 MG/24 HOURS TOPICAL PATCH TD SCH (11:09)
[2020-02-07] MEDS: PRENATAL VITAMINS W/ FOLIC ACID TABLET (FP) PO SCH (11:09)
[2020-02-07] MEDS: LISINOPRIL 10 MG TABLET PO SCH (11:10)
[2020-02-07] MEDS: NICOTINE POLACRILEX 2 MG GUM BUC PRN (11:11)
[2020-02-07] MEDS: ACETAMINOPHEN 325 MG TABLET (FP) PO PRN (21:10)
[2020-02-07] MEDS: MELATONIN 5 MG TABLETS PO SCH (22:42)
[2020-02-07] MEDS: THIAMINE HCL 100 MG TABLET (FP) PO SCH (22:43)
[2020-02-08] MEDS: diazePAM 5 MG TABLET PO SCH ×2 (06:35→17:52)
[2020-02-08] MEDS: NICOTINE POLACRILEX 2 MG GUM BUC PRN (06:41)
[2020-02-08] MEDS ORDERED: METHADONE HCL 5 MG TABLET (FOR DETOX USE ONLY) ONE (09:43)
[2020-02-08] MEDS ORDERED: METHADONE HCL 10 MG TABLET (FOR DETOX USE ONLY) ONE (09:43)
[2020-02-08] MEDS ORDERED: METHADONE (DETOX) 10 MG, METHADONE (DETOX) 5 MG PO ONE (10:00)
[2020-02-08] MEDS: LISINOPRIL 10 MG TABLET PO SCH (11:23)
[2020-02-08] MEDS: hydrOXYzine PAMOATE 25 MG CAPSULE (FP) PO PRN ×2 (11:24→22:24)
[2020-02-08] MEDS: PRENATAL VITAMINS W/ FOLIC ACID TABLET (FP) PO SCH (11:24)
[2020-02-08] MEDS: NICOTINE 14 MG/24 HOURS TOPICAL PATCH TD SCH (11:24)
[2020-02-08] MEDS ORDERED: FLU VACCINE (FLULAVAL) PF 60 MCG/0.5 ML SYRINGE 2020-2021 IM ONE (12:00)
[2020-02-08] MEDS: THIAMINE HCL 100 MG TABLET (FP) PO SCH (22:24)
[2020-02-08] MEDS: MELATONIN 5 MG TABLETS PO SCH (22:24)
[2020-02-09] MEDS ORDERED: diazePAM 5 MG TABLET PO ONE (06:00)
[2020-02-09] MEDS ORDERED: METHADONE HCL 10 MG TABLET (FOR DETOX USE ONLY) PO ONE (10:00)
[2020-02-09] MEDS: PRENATAL VITAMINS W/ FOLIC ACID TABLET (FP) PO SCH (10:38)
[2020-02-09] MEDS: LISINOPRIL 10 MG TABLET PO SCH (10:38)
[2020-02-09] MEDS: NICOTINE 14 MG/24 HOURS TOPICAL PATCH TD SCH (10:38)
[2020-02-09] MEDS: ACETAMINOPHEN 325 MG TABLET (FP) PO PRN (17:49)
[2020-02-09] MEDS: THIAMINE HCL 100 MG TABLET (FP) PO SCH (22:39)
[2020-02-09] MEDS: MELATONIN 5 MG TABLETS PO SCH (22:39)
[2020-02-09] MEDS: hydrOXYzine PAMOATE 25 MG CAPSULE (FP) PO PRN (22:39)
[2020-02-10] MEDS ORDERED: MASKS NR ONE (05:19)
[2020-02-10] MEDS ORDERED: METHADONE HCL 5 MG TABLET (FOR DETOX USE ONLY) PO ONE (06:00)
[2020-02-10] MEDS ORDERED: PENICILLIN G BENZATHINE 2,400,000 UNIT/4 ML PFS IM SCH (10:00)
[2020-02-10] MEDS: NICOTINE 14 MG/24 HOURS TOPICAL PATCH TD SCH (10:03)
[2020-02-10] MEDS: LISINOPRIL 10 MG TABLET PO SCH (10:04)
[2020-02-10] MEDS: PRENATAL VITAMINS W/ FOLIC ACID TABLET (FP) PO SCH (10:04)
[2020-02-10] MEDS: NICOTINE POLACRILEX 2 MG GUM BUC PRN (13:48)
[2020-02-10 14:04] VITALS: BP 134/87; PULSE 68; TEMP 97.7
== END 2020-02-10 14:07 | disposition other institution (70) | DRG 773 ==
LOC: YASAS 15:00 → Y6N 16:36
PROVIDERS: ADMIT Allergy & Immunology; ATTEND Allergy & Immunology
PROC: HZ2ZZZZ Detoxification Services for Substance Abuse Treatment (ICD-10-PCS; principal; 2020-02-05)
DX: F11.23 Opioid dependence with withdrawal (principal); F10.230 Alcohol dependence with withdrawal, uncomplicated; F14.20 Cocaine dependence, uncomplicated; F12.20 Cannabis dependence, uncomplicated; F17.210 Nicotine dependence, cigarettes, uncomplicated; F19.280 Other psychoactive substance dependence with psychoactive substance-induced anxiety disorder; F19.282 Other psychoactive substance dependence with psychoactive substance-induced sleep disorder; F19.24 Other psychoactive substance dependence with psychoactive substance-induced mood disorder; F31.9 Bipolar disorder, unspecified; F41.9 Anxiety disorder, unspecified; E46 Unspecified protein-calorie malnutrition; A53.0 Latent syphilis, unspecified as early or late; I10 Essential (primary) hypertension; D64.9 Anemia, unspecified; G43.909 Migraine, unspecified, not intractable, without status migrainosus; Z68.1 Body mass index [BMI] 19.9 or less, adult; Z86.19 Personal history of other infectious and parasitic diseases; Z91.5 Personal history of self-harm; Z98.51 Tubal ligation status; Z56.0 Unemployment, unspecified
CPT/HCPCS: 36415; 71046-TC-FY; 80053; 85027; 86593; 86780; 87389; C9803; G0008; Q2036; U0003

== ENCOUNTER 2020-02-10 11:31 | Inpatient (IN) | payer OTHER ==
[2020-02-10] MEDS ORDERED: LOPERAMIDE HCL 2 MG CAPSULE PO PRN (16:15)
[2020-02-10] MEDS ORDERED: MAGNESIUM CITRATE 300 ML BOTTLE PO PRN (16:15)
[2020-02-10] MEDS ORDERED: guaiFENesin 200 MG/10 ML 10 ML UNIT-DOSE CUPS PO PRN (16:15)
[2020-02-10] MEDS ORDERED: P-EPHED 60MG/TRIPROLIDI 2.5MG TABLET PO PRN (16:15)
[2020-02-10] MEDS ORDERED: MENTHOL/PHENOL 1 EACH UD MM PRN (16:15)
[2020-02-10] MEDS ORDERED: MAG HYDROX/AL HYDROX/SIMETH 30 ML UNIT-DOSE CUP PO PRN (16:15)
[2020-02-10] MEDS ORDERED: MAGNESIUM HYDROX 2400MG/30ML ORAL SUSPENSION 30 ML CUP PO PRN (16:15)
[2020-02-10] MEDS: IBUPROFEN 400 MG TABLET (FP) PO PRN (17:14)
[2020-02-10] MEDS: THIAMINE HCL 100 MG TABLET (FP) PO SCH (21:31)
[2020-02-10] MEDS: MELATONIN 5 MG TABLETS PO SCH (21:31)
[2020-02-11] MEDS: hydrOXYzine PAMOATE 25 MG CAPSULE (FP) PO PRN (01:42)
[2020-02-11] MEDS: LISINOPRIL 20 MG TABLET PO SCH (10:02)
[2020-02-11] MEDS: PRENATAL VITAMINS W/ FOLIC ACID TABLET (FP) PO SCH (10:02)
[2020-02-11] MEDS: IBUPROFEN 400 MG TABLET (FP) PO PRN (10:03)
[2020-02-11] MEDS: NICOTINE 7 MG/24 HOURS TOPICAL PATCH TD SCH (10:03)
[2020-02-11] MEDS: NICOTINE POLACRILEX 2 MG GUM BUC PRN (10:03)
[2020-02-11] MEDS ORDERED: METHOCARBAMOL 500 MG TABLET PO PRN (10:54)
[2020-02-11] MEDS: ACETAMINOPHEN 325 MG TABLET (FP) PO PRN (15:07)
[2020-02-11] MEDS: THIAMINE HCL 100 MG TABLET (FP) PO SCH (21:36)
[2020-02-11] MEDS: MELATONIN 5 MG TABLETS PO SCH (21:36)
[2020-02-12] MEDS: hydrOXYzine PAMOATE 25 MG CAPSULE (FP) PO PRN (01:56)
[2020-02-12 07:18] VITALS: TEMP 97.7
[2020-02-12 09:24] VITALS: BP 104/80; PULSE 85
[2020-02-12] MEDS: NICOTINE 7 MG/24 HOURS TOPICAL PATCH TD SCH (09:36)
[2020-02-12] MEDS: ACETAMINOPHEN 325 MG TABLET (FP) PO PRN (09:36)
[2020-02-12] MEDS: PRENATAL VITAMINS W/ FOLIC ACID TABLET (FP) PO SCH (09:37)
[2020-02-12] MEDS: LISINOPRIL 20 MG TABLET PO SCH (09:38)
[2020-02-12] MEDS: NICOTINE POLACRILEX 2 MG GUM BUC PRN (09:39)
[2020-02-17] MEDS ORDERED: PENICILLIN G BENZATHINE 2,400,000 UNIT/4 ML PFS IM ONE (10:00)
[2020-02-24] MEDS ORDERED: PENICILLIN G BENZATHINE 2,400,000 UNIT/4 ML PFS IM ONE (10:00)
== END 2020-02-12 15:00 | disposition left against medical advice (07) | DRG 770 ==
LOC: YASAS 11:31 → Y3E 11:34
PROVIDERS: ADMIT Allergy & Immunology; ATTEND Allergy & Immunology
PROC: HZ42ZZZ Group Counseling for Substance Abuse Treatment, Cognitive-Behavioral (ICD-10-PCS; principal; 2020-02-10)
DX: F10.20 Alcohol dependence, uncomplicated (principal); F14.20 Cocaine dependence, uncomplicated; F12.20 Cannabis dependence, uncomplicated; F17.210 Nicotine dependence, cigarettes, uncomplicated; F41.9 Anxiety disorder, unspecified; F32.9 Major depressive disorder, single episode, unspecified; G43.909 Migraine, unspecified, not intractable, without status migrainosus; A53.0 Latent syphilis, unspecified as early or late; Z86.2 Personal history of diseases of the blood and blood-forming organs and certain disorders involving the immune mechanism

== ENCOUNTER 2022-07-12 19:39 | Inpatient (IN) | payer OTHER ==
[2022-07-12 21:54] VITALS: BMI 18.1
[2022-07-13] MEDS ORDERED: DICYCLOMINE HCL 10 MG CAPSULE PO PRN (04:00)
[2022-07-13] MEDS ORDERED: NALOXONE HCL (KLOXXADO) 8 MG SPRAY NS PRN (04:00)
[2022-07-13] MEDS ORDERED: MAGNESIUM HYDROX 2400MG/30ML ORAL SUSPENSION 30 ML CUP PO PRN (04:00)
[2022-07-13] MEDS ORDERED: ONDANSETRON *ODT* 4 MG TABLET SL PRN (04:00)
[2022-07-13] MEDS ORDERED: BENZOCAINE/MENTHOL (CHLORASEPTIC ) LOZENGE MM PRN (04:00)
[2022-07-13] MEDS ORDERED: NALOXONE HCL 0.4 MG/ML VIAL IM PRN (04:00)
[2022-07-13] MEDS ORDERED: IBUPROFEN 400 MG TABLET (FP) PO PRN (04:00)
[2022-07-13] MEDS ORDERED: BENZONATATE 200 MG CAPSULE PO PRN (04:00)
[2022-07-13] MEDS ORDERED: LOPERAMIDE HCL 2 MG CAPSULE PO PRN (04:00)
[2022-07-13] MEDS ORDERED: MAG HYDROX/AL HYDROX/SIMETH 30 ML UNIT-DOSE CUP PO PRN (04:00)
[2022-07-13] MEDS ORDERED: METHOCARBAMOL 500 MG TABLET PO PRN (04:00)
[2022-07-13] MEDS ORDERED: BISMUTH SUBSALICYLATE 524 MG/30 ML PO PRN (04:00)
[2022-07-13] MEDS ORDERED: guaiFENesin 600 MG TABLET.ER (FP) PO PRN (04:00)
[2022-07-13] MEDS ORDERED: POLYETHYLENE GLYCOL (HEALTHYLAX) 3350 17 GM PACKET PO PRN (04:00)
[2022-07-13] MEDS ORDERED: IBUPROFEN 600 MG TABLET (FP) PO PRN (04:00)
[2022-07-13] MEDS: PRENATAL VITAMINS W/ FOLIC ACID TABLET (FP) PO SCH (10:08)
[2022-07-13] MEDS: LISINOPRIL 20 MG TABLET PO SCH (10:08)
[2022-07-13] MEDS: diazePAM 5 MG TABLET PO SCH ×3 (10:08→22:21)
[2022-07-13] MEDS: NICOTINE 14 MG/24 HOURS TOPICAL PATCH TD SCH (10:09)
[2022-07-13] MEDS: NICOTINE POLACRILEX 2 MG GUM BUC PRN (10:10)
[2022-07-13] MEDS: ACETAMINOPHEN 325 MG TABLET (FP) PO PRN (17:36)
[2022-07-13] MEDS: MELATONIN 5 MG TABLETS PO SCH (22:20)
[2022-07-13] MEDS: THIAMINE HCL 100 MG TABLET (FP) PO SCH (22:21)
[2022-07-14] MEDS: diazePAM 5 MG TABLET PO SCH ×4 (05:44→22:25)
[2022-07-14] MEDS: PRENATAL VITAMINS W/ FOLIC ACID TABLET (FP) PO SCH (10:13)
[2022-07-14] MEDS: ACETAMINOPHEN 325 MG TABLET (FP) PO PRN (10:13)
[2022-07-14] MEDS: NICOTINE 14 MG/24 HOURS TOPICAL PATCH TD SCH (10:13)
[2022-07-14] MEDS: LISINOPRIL 20 MG TABLET PO SCH (10:15)
[2022-07-14 11:22] LABS: HEMATOCRIT 42.2 % (32.4-45.2); HEMOGLOBIN 14.2 GM/dL (10.7-15.3); MCH 31.1 pg (25.7-33.7); MCHC 33.6 g/dl (32.0-36.0); MEAN CELL VOLUME 92.3 fl (80-96); MEAN PLT VOLUME 9.7 fl (7.5-11.1); PLATELET COUNT 263 10^3/uL (134-434); RBC 4.57 M/mm3 (3.60-5.2); RDW 14.9 % (11.6-15.6)
[2022-07-14 11:34] LABS: CALCIUM 9.6 mg/dL (8.5-10.1)
[2022-07-14 11:35] LABS: ALBUMIN 3.1 g/dl (3.4-5.0); BLOOD UREA NITROGEN 18.9 mg/dL (7-18)
[2022-07-14 11:37] LABS: CREATININE 0.7 mg/dL (0.55-1.3)
[2022-07-14 11:39] LABS: BILIRUBIN,TOTAL 0.2 mg/dL (0.2-1)
[2022-07-14 11:40] LABS: TOT PROT 6.9 g/dl (6.4-8.2)
[2022-07-14] MEDS: MELATONIN 5 MG TABLETS PO SCH (22:25)
[2022-07-14] MEDS: THIAMINE HCL 100 MG TABLET (FP) PO SCH (22:25)
[2022-07-15] MEDS: diazePAM 5 MG TABLET PO SCH ×3 (05:39→22:32)
[2022-07-15] MEDS: PRENATAL VITAMINS W/ FOLIC ACID TABLET (FP) PO SCH (10:02)
[2022-07-15] MEDS: NICOTINE 14 MG/24 HOURS TOPICAL PATCH TD SCH (10:03)
[2022-07-15] MEDS: LISINOPRIL 20 MG TABLET PO SCH (10:03)
[2022-07-15] MEDS: GABAPENTIN 100 MG CAPSULE PO SCH ×2 (13:24→22:32)
[2022-07-15] MEDS: NICOTINE POLACRILEX 2 MG GUM BUC PRN (16:36)
[2022-07-15] MEDS: diazePAM 5 MG TABLET PO PRN (18:20)
[2022-07-15 21:16] VITALS: RESP 18
[2022-07-15] MEDS: MELATONIN 5 MG TABLETS PO SCH (22:32)
[2022-07-15] MEDS: THIAMINE HCL 100 MG TABLET (FP) PO SCH (22:32)
[2022-07-15] MEDS: ACETAMINOPHEN 325 MG TABLET (FP) PO PRN (22:33)
[2022-07-16] MEDS: diazePAM 5 MG TABLET PO PRN (02:02)
[2022-07-16] MEDS: GABAPENTIN 100 MG CAPSULE PO SCH ×2 (05:57→13:43)
[2022-07-16] MEDS ORDERED: diazePAM 5 MG TABLET PO SCH (06:00)
[2022-07-16] MEDS: LISINOPRIL 20 MG TABLET PO SCH (10:40)
[2022-07-16] MEDS: NICOTINE 14 MG/24 HOURS TOPICAL PATCH TD SCH (10:40)
[2022-07-16] MEDS: PRENATAL VITAMINS W/ FOLIC ACID TABLET (FP) PO SCH (10:40)
[2022-07-16 12:55] VITALS: BP 103/70; PULSE 94; TEMP 98.6
[2022-07-16] MEDS: ACETAMINOPHEN 325 MG TABLET (FP) PO PRN (15:07)
[2022-07-17] MEDS ORDERED: diazePAM 5 MG TABLET PO ONE (06:00)
== END 2022-07-16 16:45 | disposition home or self-care (01) | DRG 774 ==
LOC: YASAS 19:39 → UNDOADMIN 07-13 04:19 → Y3N 07-13 04:19
PROVIDERS: ADMIT Allergy & Immunology; ATTEND Surgery
PROC: HZ2ZZZZ Detoxification Services for Substance Abuse Treatment (ICD-10-PCS; principal; 2022-07-13)
DX: F10.230 Alcohol dependence with withdrawal, uncomplicated (principal); F14.20 Cocaine dependence, uncomplicated; F12.20 Cannabis dependence, uncomplicated; F17.210 Nicotine dependence, cigarettes, uncomplicated; G47.00 Insomnia, unspecified; I10 Essential (primary) hypertension; R76.8 Other specified abnormal immunological findings in serum; Z86.19 Personal history of other infectious and parasitic diseases; Z91.199 Patient's noncompliance with other medical treatment and regimen due to unspecified reason
CPT/HCPCS: 36415; 71046-TC-FY; 80053; 81025; 85027; 86593; 86780; C9803-CS; Q0162; U0003; U0005

== ENCOUNTER 2024-07-16 11:40 | Inpatient (IN) | payer OTHER ==
[2024-07-16 11:57] VITALS: BMI 19.0
[2024-07-16] MEDS ORDERED: guaiFENesin 600 MG TABLET.ER (FP) PO PRN (12:13)
[2024-07-16] MEDS ORDERED: ONDANSETRON *ODT* 4 MG TABLET SL PRN (12:13)
[2024-07-16] MEDS ORDERED: IBUPROFEN 400 MG TABLET (FP) PO PRN (12:13)
[2024-07-16] MEDS ORDERED: BENZONATATE 200 MG CAPSULE PO PRN (12:13)
[2024-07-16] MEDS ORDERED: MAG HYDROX/AL HYDROX/SIMETH 30 ML UNIT-DOSE CUP PO PRN (12:13)
[2024-07-16] MEDS ORDERED: ACETAMINOPHEN 325 MG TABLET (FP) PO PRN (12:13)
[2024-07-16] MEDS ORDERED: BISMUTH SUBSALICYLATE 524 MG/30 ML PO PRN (12:13)
[2024-07-16] MEDS ORDERED: NALOXONE (NARCAN) HCL 4 MG/0.1 ML SPRAY NS PRN (12:13)
[2024-07-16] MEDS ORDERED: BENZOCAINE/MENTHOL (CHLORASEPTIC ) LOZENGE MM PRN (12:13)
[2024-07-16] MEDS ORDERED: DICYCLOMINE HCL 10 MG CAPSULE PO PRN (12:13)
[2024-07-16] MEDS ORDERED: POLYETHYLENE GLYCOL (HEALTHYLAX) 3350 17 GM PACKET PO PRN (12:13)
[2024-07-16] MEDS ORDERED: methaDONE HCL 10 MG TABLET (FOR DETOX USE ONLY) PO PRN (12:13)
[2024-07-16] MEDS ORDERED: LOPERAMIDE HCL 2 MG CAPSULE PO PRN (12:13)
[2024-07-16] MEDS ORDERED: HYDROCHLOROTHIAZIDE 12.5 MG CAPSULE (FP) ONE (12:30)
[2024-07-16] MEDS ORDERED: amLODIPine BESYLATE 5 MG TABLET (FP) ONE (12:30)
[2024-07-16] MEDS: amLODIPine BESYLATE 5 MG TABLET (FP) PO SCH (12:31)
[2024-07-16] MEDS: HYDROCHLOROTHIAZIDE 25 MG TABLET (FP) PO SCH (12:32)
[2024-07-16] MEDS ORDERED: LISINOPRIL 10 MG TABLET ONE (12:51)
[2024-07-16] MEDS ORDERED: methaDONE HCL 10 MG TABLET (FOR DETOX USE ONLY) ONE (12:51)
[2024-07-16] MEDS ORDERED: BUPRENORPHINE/NALOXONE 0.5 MG/0.125 MG FILM ONE (12:52)
[2024-07-16] MEDS: LISINOPRIL 10 MG TABLET PO ONE (12:54)
[2024-07-16] MEDS: methaDONE HCL 10 MG TABLET (FOR DETOX USE ONLY) PO ONE (12:54)
[2024-07-16] MEDS: BUPRENORPHINE/NALOXONE 0.5 MG/0.125 MG FILM SL ONE ×2 (12:55→22:23)
[2024-07-16] MEDS: diazePAM 5 MG TABLET PO SCH (14:16)
[2024-07-16] MEDS: cloNIDine HCL 0.1 MG TABLET PO SCH (14:16)
[2024-07-16] MEDS: METHOCARBAMOL 500 MG TABLET PO PRN (22:22)
[2024-07-16] MEDS: MELATONIN 5 MG TABLETS PO SCH (22:23)
[2024-07-16] MEDS: THIAMINE 100 MG TABLET PO SCH (22:23)
[2024-07-17] MEDS: diazePAM 5 MG TABLET PO SCH (05:31)
[2024-07-17] MEDS: NICOTINE POLACRILEX 4 MG GUM BUC PRN (08:50)
[2024-07-17] MEDS: BUPRENORPHINE/NALOXONE 0.5 MG/0.125 MG FILM SL SCH (10:37)
[2024-07-17] MEDS: PRENATAL VITAMINS W/ FOLIC ACID TABLET (FP) PO SCH (10:37)
[2024-07-17] MEDS: LISINOPRIL 20 MG TABLET PO SCH (10:39)
[2024-07-17 11:41] LABS: HEMATOCRIT 38.4 % (34.1-44.9); HEMOGLOBIN 11.9 g/dL (11.2-15.7); MEAN CELL VOLUME 89.9 fl (79.4-94.8); MEAN PLT VOLUME 11.4 fl (9.4-12.3); PLATELET COUNT 377 x10^3/uL (182-369); RDW 16.2 % (12.3-16.6)
[2024-07-17 11:55] LABS: ALBUMIN 3.5 g/dl (3.4-5.0); BLOOD UREA NITROGEN 9.8 mg/dL (7-18); CALCIUM 9.7 mg/dL (8.5-10.1)
[2024-07-17 11:59] LABS: CREATININE 0.7 mg/dL (0.55-1.3)
[2024-07-17 12:00] LABS: BILIRUBIN,TOTAL 0.3 mg/dL (0.2-1); TOT PROT 7.5 g/dl (6.4-8.2)
[2024-07-17] MEDS: IBUPROFEN 600 MG TABLET (FP) PO PRN (17:49)
[2024-07-17] MEDS: PENICILLIN G BENZATHINE 2,400,000 UNIT/4 ML PFS IM ONE ×2 (17:51)
[2024-07-18] MEDS: hydrOXYzine PAMOATE 25 MG CAPSULE (FP) PO PRN (06:29)
[2024-07-18] MEDS: diazePAM 5 MG TABLET PO ONE (10:33)
[2024-07-18] MEDS: amLODIPine BESYLATE 2.5 MG TABLET (FP) PO SCH (10:33)
[2024-07-18] MEDS: BUPRENORPHINE/NALOXONE 2 MG/0.5 MG FILM PACKET SL SCH (10:34)
[2024-07-18] MEDS: methaDONE HCL 10 MG TABLET (FOR DETOX USE ONLY) PO ONE (10:34)
[2024-07-19] MEDS: BUPRENORPHINE/NALOXONE 4 MG/1 MG FILM PACKET SL SCH (09:43)
[2024-07-20 09:26] VITALS: RESP 16
[2024-07-20] MEDS: MAGNESIUM HYDROX 2400MG/30ML ORAL SUSPENSION 30 ML CUP PO PRN (09:30)
[2024-07-20] MEDS: methaDONE HCL 10 MG TABLET (FOR DETOX USE ONLY) PO ONE (09:31)
[2024-07-20] MEDS: BUPRENORPHINE/NALOXONE 8 MG/2 MG FILM PACKET SL SCH (09:32)
[2024-07-21 09:20] VITALS: BP 142/91; TEMP 97.7
[2024-07-21] MEDS: BUPRENORPHINE/NALOXONE 8 MG/2 MG FILM PACKET SL SCH (10:19)
[2024-07-21 10:36] VITALS: PULSE 70
== END 2024-07-21 11:38 | disposition home or self-care (01) | DRG 773 ==
LOC: YASAS 11:40 → Y6N 12:52
PROVIDERS: ADMIT Allergy & Immunology; ATTEND Allergy & Immunology
PROC: HZ2ZZZZ Detoxification Services for Substance Abuse Treatment (ICD-10-PCS; principal; 2024-07-16)
DX: F11.23 Opioid dependence with withdrawal (principal); F10.230 Alcohol dependence with withdrawal, uncomplicated; F14.20 Cocaine dependence, uncomplicated; F12.20 Cannabis dependence, uncomplicated; F17.210 Nicotine dependence, cigarettes, uncomplicated; F19.24 Other psychoactive substance dependence with psychoactive substance-induced mood disorder; A53.9 Syphilis, unspecified; I10 Essential (primary) hypertension; R63.6 Underweight; Z68.1 Body mass index [BMI] 19.9 or less, adult; Z91.51 Personal history of suicidal behavior
CPT/HCPCS: 36415; 80053; 80305; 80307; 81025; 85027; 86593; 86780; 93005; 93010